=== PATIENT | female | born 1955 | race Hispanic/Latino ===

== ENCOUNTER 2024-12-14 11:12 | Emergency (ER) | payer OTHER ==
--- OUTSIDE RECORDS SUMMARY | 2024-12-14 11:18 | XMS REPORT | Continuity of Care Document ---
Author Name Unknown Address [address] [facility] [place] [address] [facility] Address [address] [facility] [address] [place] [address] Care Team Providers Care Dental Hygiene Professor Name Role Phone Kd Verde Primary Care Physician [phone] Kd Mirza Attending Clinician Unavailable BEVERLY PITTMAN Attending Clinician Unavailable BEVERLY PITTMAN Attending Clinician Unavailable Phil Robles Attending Clinician Unavailable Nic Roegrs Attending Clinician Unavailab SHRUTHI Juárez K.HGeorgia Attending Clinician UnavailShruthi Alaniz MD K.H. Attending Clinician [phone] CRYSTAL_Travis_Phil_ Attending Clinician Unavailjosefa laureano Doctor Unassigned, [place] Attending Clinician U jordanailLIDYA Mccollum Attending Clinician Unavailable Lidya Doan Attending Clinician [phone] Unknown, Attending Attending Clinician UnavailREMEDIOS White Attending Clinician Unavailable Remedios Park MD Attending Clinician [phone] Rita Lopez MA Attending Clinician UnavailKd Nur Admitting Clinician Unavailable Phil Robles Admitting Clinician Unavailable Nic Rogers Admitting Clinician UnavailKD Coburn Admitting Clinician Unavailable CRYSTAL_Marilyn_ Admitting Clinician Unavaila ble Payers Payer Name Policy Type Policy Number Effective Date Expirati on Date Source [place]IC[place]: [employer] [id number] 2020 00:00:00 [employer] [place] (MEDICARE SUPPLEMENT) [id number] 2022 00:00:00 [employer] [id number] Comm on [facility] LIFE INSURANCE [id number] 2020 00:00:00 AETNA CHOICE POS II [id number] 2018 00:00:00 2020 00:00:00 Problems Condition Name Condition Details Condition Category Status Onset Date Resolution Date Last Treatment Date Treating Clinician Comments Source Knee joint prosthesis present Knee Joint Prosthesis Present Problem Active 2023-08 2-19 00:00: 00 [facility] Postoperat dao pain Postoperat dao Pain Problem Active 9-05 00:00: 00 [facility] 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 Problem Active 7-23 00:00: 00 [facility] Foot-drop Foot-drop Problem Active 7-19 00:00: 00 [facility] Lumbar radiculopa thy Lumbar Radiculopa thy Problem Active 7-18 00:00: 00 [facility] Bursitis of right shoulder Bursitis of Right Shoulder Problem Active 12-23 00:00: 00 [facility] Pain of bilateral knee regions Pain of Bilateral Knee Regions Problem Active 12-23 00:00: 00 [facility] Primary gonarthros is, bilateral Primary Gonarthros is, Bilateral Problem Active 2024-0 5-07 00:00: 00 [facility] Rupture of tendon of biceps Rupture of Tendon of Biceps Problem Active 5-07 00:00: 00 [facility] Postmenopa usal osteoporos is Postmenopa usal osteoporos is Disease Active 2-15 00:00: [address] [facility] Osteopenia , unspecifie d location Osteopenia , unspecifie d location Disease Active 1-13 00:00: [address] [facility] [id number] Pain, joint, knee, right Problem [facility] [id number] Pain, joint, knee, left Problem [facility] [id number] Pain, joint, shoulder, right Problem [facility] [id number] Pain of right humerus Problem [facility] [id number] Injury of left knee, initial encounter Problem [facility] [id number] Primary osteoarthr itis of left knee Problem [facility] [id number] Other tear of medial meniscus of left knee as current injury, subsequent encounter Problem [facility] [id number] Primary osteoarthr itis of right knee Problem [facility] Allergies, Adverse Reactions, Alerts Allergy Name Allergy Type Status Severity Reaction(s) Onset Date Inactive Date Treating Clinician Comments Source No Known Drug Allergie s DA Active U 2023-08 0- 00:00: 00 [facility] lactose FA Active WI [facility] 2023-08 0-31 00:00: 00 [facility] lactose FA Active WI SEVERE CRAMPING 9- 00:00: 00 [facility] Lactose Allergy to substanc e Active 9- 00:00: 00 [facility] No Known Drug Allergie s DA Active U 8- 00:00: 00 [facility] lactose FA Active WI SE[facility]ERE CRAMPING 8- 00:00: 00 [facility] Hydrocod one Drug Intolera nce Active Nausea and/or Vomiting 08-31 00:00: 00 [facility] HYDROCOD ONE DRUG INGREDI Active Med N/V 08-31 00:00: 00 [facility] Hydrocod one Allergy to substanc e Active 08-31 00:00: 00 [facility] Milk Allergy to substanc e Active [facility] Social History Social Habit Start Date Stop Date Quantity Comments Source History of Tobacco Use [facility] Sex Assigned At [facility] History SDOH Alcohol Std Drinks [facility] History SDOH Alcohol Binge [facility] History SDOH Alcohol Comment [facility] Alcoholic beverage intake 2024-10-23 00:00:00 2024-10-23 00:00:00 Lifetime non-drinker (finding) [facility] Alcohol intake 2023-10-18 00:00:00 2023-10-18 00:00:00 Lifetime non-drinker (finding) [facility] Exposure to SARS-CoV-2 (event) 2022-10-09 00:00:00 2022-10-19 14:11:00 Not sure [facility] Tobacco use and exposure 2022-10-12 00:00:00 2022-10-12 00:00:00 Smokeless tobacco non-user [facility] History of Social function 2021-10-03 00:00:00 2021-10-03 00:00:00 [facility] History SDOH Alcohol Frequency 2020-08-31 00:00:00 2020-08-31 00:00:00 1 [facility] Smoking Status Start Date Stop Date Source Former Smoker [facility] Never smoked tobacco [facility] Medications Ordered Medication Name Filled Medication Name Start Date Stop Date Current Medication? Ordering Clinician Indication Dosage Frequency Signature (SIG) Comments Components Source doxycycline hyclate 100 mg capsule Take 1 capsule twice a day by oral route for 7 days. doxycycline hyclate 100 mg capsule Take 1 capsule twice a day by oral route for 7 days. 2023-08 2 00:00: 00 No doxycyclin e hyclate 100 mg capsule Take 1 capsule twice a day by oral route for 7 days. [facility] aspirin 81 mg tablet,mojgan yed release 1 tablet twice a day by oral route. aspirin 81 mg tablet,mojgan yed release 1 tablet twice a day by oral route. 2023-08 0 00:00: 00 No 1 BID aspirin 81 mg tablet,del ayed release 1 tablet twice a day by oral route. [facility] Kenalog (Triamcinol one) Kenalog (Triamcinol one) 2 00:00: 00 No [facility]mL [facility] Lidocaine Lidocaine 00:00: 00 No 5mL [facility] Kenalog (Triamcinol one) Kenalog (Triamcinol one) 00:00: 00 No 2mL [facility] Lidocaine Lidocaine 00:00: 00 No 5mL [facility] Kenalog (Triamcinol one) Kenalog (Triamcinol one) 00:00: 00 No 2mL [facility] Lidocaine Lidocaine 00:00: 00 No 5mL [facility] Kenalog (Triamcinol one) Kenalog (Triamcinol one) 00:00: 00 No 2mL [facility] Lidocaine Lidocaine 00:00: 00 No 5mL [facility] Kenalog (Triamcinol one) Kenalog (Triamcinol one) 01-23 00:00: 00 No 2mL [facility] Lidocaine Lidocaine 01-23 00:00: 00 No 5mL [facility] Kenalog (Triamcinol one) Kenalog (Triamcinol one) 01-23 00:00: 00 No 2mL [facility] Lidocaine Lidocaine 0 01-23 00:00: 00 No 5mL [facility] Kenalog (Triamcinol one) Kenalog (Triamcinol one) 0 - 00:00: 00 No 2mL [facility] Lidocaine Lidocaine 0 01-23 00:00: 00 No 5mL [facility] Kenalog (Triamcinol one) Kenalog (Triamcinol one) 0 - 00:00: 00 No 2mL [facility] Lidocaine Lidocaine 0 01-23 00:00: 00 No 5mL [facility] Kenalog (Triamcinol one) Kenalog (Triamcinol one) 0 01-23 00:00: 00 No 2mL [facility] Lidocaine Lidocaine 0 01-23 00:00: 00 No 5mL [facility] Kenalog (Triamcinol one) Kenalog (Triamcinol one) 0 01-23 00:00: 00 No 2mL [facility] Lidocaine Lidocaine 0 01-23 00:00: 00 No 5mL [facility] Kenalog (Triamcinol one) Kenalog (Triamcinol one) 0 01-23 00:00: 00 No 2mL [facility] Lidocaine Lidocaine 0 01-23 00:00: 00 No 5mL [facility] Lidocaine Lidocaine 0 17 00:00: 00 No 5mL [facility] Kenalog (Triamcinol one) Kenalog (Triamcinol one) 0 -17 00:00: 00 No 2mL [facility] Lidocaine Lidocaine 0 -17 00:00: 00 No 5mL [facility] Kenalog (Triamcinol one) Kenalog (Triamcinol one) 0 -17 00:00: 00 No 2mL [facility] Lidocaine Lidocaine 0 -17 00:00: 00 No 5mL [facility] Kenalog (Triamcinol one) Kenalog (Triamcinol one) 0 5-17 00:00: 00 No 2mL [facility] Lidocaine Lidocaine 2022-0 5-17 00:00: 00 No 5mL [facility] Kenalog (Triamcinol one) Kenalog (Triamcinol one) 0 5-17 00:00: 00 No 2mL [facility] Lidocaine Lidocaine 2022-0 5-17 00:00: 00 No 5mL [facility] Kenalog (Triamcinol one) Kenalog (Triamcinol one) 2022-0 5-17 00:00: 00 No 2mL [facility] Lidocaine Lidocaine 0 -17 00:00: 00 No 5mL [facility] Kenalog (Triamcinol one) Kenalog (Triamcinol one) 2022-0 -17 00:00: 00 No 2mL [facility] Lidocaine Lidocaine 2022-0 -17 00:00: 00 No 5mL [facility] Kenalog (Triamcinol one) Kenalog (Triamcinol one) 2022-0 -17 00:00: 00 No 2mL [facility] Meloxicam 7.5 MG Meloxicam 7.5 MG 2022-0 27 00:00: 00 No 1{table t} QD Meloxicam 7.5 MG Meloxicam 7.5 MG Meloxicam 7.5 MG 2022-0 27 00:00: 00 No 1{table t} QD Meloxicam 7.5 MG Meloxicam 7.5 MG Meloxicam 7.5 MG 2022-0 27 00:00: 00 No 1{table t} QD Meloxicam 7.5 MG Meloxicam 7.5 MG Meloxicam 7.5 MG 2022-0 12-13 00:00: 00 No 1{table t} QD Meloxicam 7.5 MG Meloxicam 7.5 MG Meloxicam 7.5 MG 12-13 00:00: 00 No 1{table t} QD Meloxicam 7.5 MG Meloxicam 7.5 MG Meloxicam 7.5 MG 12-13 00:00: 00 No 1{table t} QD Meloxicam 7.5 MG nitrofurant oin 100 mg capsule 10-19 00:00: 00 10-27 05:59 :00 No [id number] 100mg Take 1 capsule by mouth in the morning and 1 capsule in the evening. Do all this for [address] [facility] fluconazole (DIFLUCAN) 150 mg tablet 10-19 00:00: 00 10-22 05:59 :00 No [id number] 150mg Take 1 tablet by mouth in the morning for [address] [facility] FERROUS GLUCONATE ORAL 224 09:51: 35 Yes Take by mouth. [facility] BABY ASPIRIN ORAL 215 09:41: 22 Yes Take by mouth. [facility] alendronate (FOSAMAX) 70 mg tablet 11-15 00:00: 00 Yes [id number] 70mg Take 1 tablet by mouth weekly. [facility] calcium carbonate (CALCIUM 500) 500 mg calcium (1,250 mg) chewable tablet 11-08 00:00: 00 Yes [id number] 1{tbl} Take 1 tablet by mouth daily. [facility] folic acid/multiv it-min/lute in (CENTRUM SILVER ORAL) 08-31 11:06: 27 Yes Take by mouth. [facility] cyanocobala min 1,000 mcg/mL injection 08-31 11:06: 27 Yes by Intramuscu lar route once now. [facility] Bupivicaine [place] Bupivicaine [place] 1-07 00:00: 00 No 2.5mg [facility] Kenalog (Triamcinol one) Kenalog (Triamcinol one) 08-25 00:00: 00 No 40mg [facility] Bupivicaine [place] Bupivicaine [place] 08-25 00:00: 00 No 2.5mg [facility] Kenalog (Triamcinol one) Kenalog (Triamcinol one) 08-25 00:00: 00 No 40mg [facility] Bupivicaine [place] Bupivicaine [place] 08-25 00:00: 00 No 2.5mg [facility] Kenalog (Triamcinol one) Kenalog (Triamcinol one) 08-25 00:00: 00 No 40mg [facility] Bupivicaine [place] Bupivicaine [place] 08-25 00:00: 00 No 2.5mg [facility] Kenalog (Triamcinol one) Kenalog (Triamcinol one) 08-25 00:00: 00 No 40mg [facility] Bupivicaine [place] Bupivicaine [place] 08-25 00:00: 00 No 2.5mg [facility] Kenalog (Triamcinol one) Kenalog (Triamcinol one) 08-25 00:00: 00 No 40mg [facility] Bupivicaine [place] Bupivicaine [place] 08-25 00:00: 00 No 2.5mg [facility] Kenalog (Triamcinol one) Kenalog (Triamcinol one) 08-25 00:00: 00 No 40mg [facility] Bupivicaine [place] Bupivicaine [place] 08-25 00:00: 00 No 2.5mg [facility] Kenalog (Triamcinol one) Kenalog (Triamcinol one) 08-25 00:00: 00 No 40mg [facility] metFORMIN 500 mg tablet 2019-08 00:00: 00 Yes 500mg Take 1 tablet by mouth in the morning and 1 tablet in the evening. [facility] VITAMIN D2 1,250 mcg (50,000 unit) capsule 2019-08 00:00: 00 Yes TAKE 1 CAPSULE BY MOUTH ONCE A WEEKLY FOR ONE MONTH THEN TAKE [address] ON[address] A MONTH [facility] atorvastati n 20 mg tablet 2019-08 00:00: 00 Yes 20mg Take 1 tablet by mouth in the morning. [facility] ferrous gluconate 324 mg (38 mg iron) tablet TAKE 1 TABLET BY MOUTH DAILY WITH WATER OR JUICE BETWEEN MEALS ferrous gluconate 324 mg (38 mg iron) tablet TAKE 1 TABLET BY MOUTH DAILY WITH WATER OR JUICE BETWEEN MEALS No ferrous gluconate 324 mg (38 mg iron) tablet TAKE 1 TABLET BY MOUTH DAILY WITH WATER OR JUICE BETWEEN MEALS [facility] metformin 1,000 mg tablet TAKE 1 TABLET BY MOUTH TWICE DAILY metformin 1,000 mg tablet TAKE 1 TABLET BY MOUTH TWICE DAILY No metformin 1,000 mg tablet TAKE 1 TABLET BY MOUTH TWICE DAILY [facility] calcium 500 mg (as carbonate)- vitamin D3 5 mcg (200 unit) tablet calcium 500 mg (as carbonate)- vitamin D3 5 mcg (200 unit) tablet No calcium 500 mg (as carbonate) -vitamin D3 5 mcg (200 unit) tablet [facility] cholecalcif sesar (vitamin D3) 1,250 mcg (50,000 unit) capsule cholecalcif sesar (vitamin D3) 1,250 mcg (50,000 unit) capsule No cholecalci ferol (vitamin D3) 1,250 mcg (50,000 unit) capsule [facility] ferrous sulfate 325 mg (65 mg iron) tablet ferrous sulfate 325 mg (65 mg iron) tablet No ferrous sulfate 325 mg (65 mg iron) tablet [facility] HYDROcodone -Acetaminop hen 7.5-325 MG HYDROcodone -Acetaminop hen 7.5-325 MG No HYDROcodon e-Acetamin ophen 7.5-325 MG Centrum Silver Centrum Silver No Centrum Silver Multivitami n Multivitami n No Multivitam in HYDROcodone -Acetaminop hen 7.5-325 MG HYDROcodone -Acetaminop hen 7.5-325 MG No HYDROcodon e-Acetamin ophen 7.5-325 MG Amoxicillin 500 MG Amoxicillin 500 MG No Amoxicilli n 500 MG Multivitami n Multivitami n No Multivitam in HYDROcodone -Acetaminop hen 7.5-325 MG HYDROcodone -Acetaminop hen 7.5-325 MG No HYDROcodon e-Acetamin ophen 7.5-325 MG Amoxicillin 500 MG Amoxicillin 500 MG No Amoxicilli n 500 MG Dodex Dodex No Dodex Multivitami n Multivitami n No Multivitam in HYDROcodone -Acetaminop hen 7.5-325 MG HYDROcodone -Acetaminop hen 7.5-325 MG No HYDROcodon e-Acetamin ophen 7.5-325 MG Amoxicillin 500 MG Amoxicillin 500 MG No Amoxicilli n 500 MG Amoxicillin 500 MG Amoxicillin 500 MG No Amoxicilli n 500 MG Vitamin D 50 MCG (1999) Vitamin D 50 MCG (1999) No 1{table t} QD Vitamin D 50 MCG (1999) Calcium + D3 Calcium + D3 No Calcium + D3 Ferrous Gluconate 324 (38 Fe) MG Ferrous Gluconate 324 (38 Fe) MG No 1{table t} Ferrous Gluconate 324 (38 Fe) MG Multivitami n - Multivitami n - No 1{table t} QD Multivitam in - traZODone HCl 50 MG traZODone HCl 50 MG No 1{table t_at_be dtime_a s_neede d} QD traZODone HCl 50 MG Atorvastati n Calcium 20 MG Atorvastati n Calcium 20 MG No 1{table t} QD Atorvastat in Calcium 20 MG Dodex 1000 MCG/ML Dodex 1000 MCG/ML No 1{ml} Dodex 1000 MCG/ML metFORMIN HCl 1000 MG metFORMIN HCl 1000 MG No 1{table t_with_ a_meal} QD metFORMIN HCl 1000 MG HYDROcodone -Acetaminop hen 7.5-325 MG HYDROcodone -Acetaminop hen 7.5-325 MG No HYDROcodon e-Acetamin ophen 7.5-325 MG Dodex Dodex No Dodex Amoxicillin 500 MG Amoxicillin 500 MG No Amoxicilli n 500 MG HYDROcodone -Acetaminop hen 7.5-325 MG HYDROcodone -Acetaminop hen 7.5-325 MG No HYDROcodon e-Acetamin ophen 7.5-325 MG Amoxicillin 500 MG Amoxicillin 500 MG No Amoxicilli n 500 MG Immunizations Ordered Immunization Name Filled Immunization Name Date Status Comments Source Influenza Virus Vaccine,quad Im,preserve Free 65+ (FLUAD) 2023-06-09 00:00:00 Completed [facility] SARS-COV-2 COVID-19 PFIZER VACCINE 2023-06-09 00:00:00 Completed SARS-COV-2 COVID-19 MODERNA VACCINE 2021-06-23 00:00:00 Completed [facility] SARS-COV-2 COVID-19 MODERNA VACCINE 2021-06-23 00:00:00 Completed [facility] SARS-COV-2 COVID-19 MODERNA VACCINE 2021-06-23 00:00:00 Completed [facility] SARS-COV-2 COVID-19 MODERNA VACCINE 2021-06-23 00:00:00 Completed [facility] SARS-COV-2 COVID-19 MODERNA 12+ YRS VACCINE 2021-06-23 00:00:00 Completed [facility] SARS-COV-2 COVID-19 MODERNA 12+ YRS VACCINE 2021-06-23 00:00:00 Completed [facility] SARS-COV-2 COVID-19 MODERNA 12+ YRS VACCINE 2021-06-23 00:00:00 Completed [facility] SARS-COV-2 COVID-19 MODERNA 12+ YRS VACCINE 2021-06-23 00:00:00 Completed [facility] SARS-COV-2 COVID-19 MODERNA 12+ YRS VACCINE 2021-06-23 00:00:00 Completed Influenza High Dose 2021-06-08 00:00:00 Completed [facility] Pneumococcal Polysaccharide, PPSV23 (PNEUMOVAX) 2021-06-08 00:00:00 Completed [facility] Influenza High Dose 2021-06-08 00:00:00 Completed [facility] Pneumococcal Polysaccharide, PPSV23 (PNEUMOVAX) 2021-06-08 00:00:00 Completed [facility] Influenza High Dose 2021-06-08 00:00:00 Completed [facility] Pneumococcal Polysaccharide, PPSV23 (PNEUMOVAX) 2021-06-08 00:00:00 Completed [facility] Influenza High Dose 2021-06-08 00:00:00 Completed [facility] Pneumococcal Polysaccharide, PPSV23 (PNEUMOVAX) 2021-06-08 00:00:00 Completed [facility] Influenza High Dose 2021-06-08 00:00:00 Completed [facility] Pneumococcal Polysaccharide, PPSV23 (PNEUMOVAX) 2021-06-08 00:00:00 Completed [facility] Influenza High Dose 2021-06-08 00:00:00 Completed [facility] Pneumococcal Polysaccharide, PPSV23 (PNEUMOVAX) 2021-06-08 00:00:00 Completed [facility] Influenza High Dose 2021-06-08 00:00:00 Completed [facility] Pneumococcal Polysaccharide, PPSV23 (PNEUMOVAX) 2021-06-08 00:00:00 Completed [facility] Influenza High Dose 2021-06-08 00:00:00 Completed [facility] Pneumococcal Polysaccharide, PPSV23 (PNEUMOVAX) 2021-06-08 00:00:00 Completed [facility] Influenza, High-Dose, Trivalent, PF (FLUZONE) 2021-06-08 00:00:00 Completed [facility] Pneumococcal Polysaccharide, PPSV23 (PNEUMOVAX) 2021-06-08 00:00:00 Completed SARS-COV-2 COVID-19 MODERNA VACCINE 2020-11-08 00:00:00 Completed [facility] SARS-COV-2 COVID-19 MODERNA VACCINE 2020-11-08 00:00:00 Completed [facility] SARS-COV-2 COVID-19 MODERNA VACCINE 2020-11-08 00:00:00 Completed [facility] SARS-COV-2 COVID-19 MODERNA VACCINE 2020-11-08 00:00:00 Completed [facility] SARS-COV-2 COVID-19 MODERNA 12+ YRS VACCINE 2020-11-08 00:00:00 Completed [facility] SARS-COV-2 COVID-19 MODERNA 12+ YRS VACCINE 2020-11-08 00:00:00 Completed [facility] SARS-COV-2 COVID-19 MODERNA 12+ YRS VACCINE 2020-11-08 00:00:00 Completed [facility] SARS-COV-2 COVID-19 MODERNA 12+ YRS VACCINE 2020-11-08 00:00:00 Completed [facility] SARS-COV-2 COVID-19 MODERNA 12+ YRS VACCINE 2020-11-08 00:00:00 Completed SARS-COV-2 COVID-19 MODERNA VACCINE 2020-10-13 00:00:00 Completed [facility] SARS-COV-2 COVID-19 MODERNA VACCINE 2020-10-13 00:00:00 Completed [facility] SARS-COV-2 COVID-19 MODERNA VACCINE 2020-10-13 00:00:00 Completed [facility] SARS-COV-2 COVID-19 MODERNA VACCINE 2020-10-13 00:00:00 Completed [facility] SARS-COV-2 COVID-19 MODERNA 12+ YRS VACCINE 2020-10-13 00:00:00 Completed [facility] SARS-COV-2 COVID-19 MODERNA 12+ YRS VACCINE 2020-10-13 00:00:00 Completed [facility] SARS-COV-2 COVID-19 MODERNA 12+ YRS VACCINE 2020-10-13 00:00:00 Completed [facility] SARS-COV-2 COVID-19 MODERNA 12+ YRS VACCINE 2020-10-13 00:00:00 Completed [facility] SARS-COV-2 COVID-19 MODERNA 12+ YRS VACCINE 2020-10-13 00:00:00 Completed [facility] Influenza Virus Vaccine Recomb Quad IM, Preserv and ABX Free 18-64 YRS 2020-05-31 00:00:00 Completed [facility] Zoster Vaccine Recombinant 2020-05-31 00:00:00 Completed [facility] Influenza Virus Vaccine Recomb Quad IM, Preserv and ABX Free 18-64 YRS 2020-05-31 00:00:00 Completed [facility] Zoster Vaccine Recombinant 2020-05-31 00:00:00 Completed [facility] Influenza Virus Vaccine Recomb Quad IM, Preserv and ABX Free 18-64 YRS 2020-05-31 00:00:00 Completed [facility] Zoster Vaccine Recombinant 2020-05-31 00:00:00 Completed [facility] Influenza Virus Vaccine Recomb Quad IM, Preserv and ABX Free 18-64 YRS 2020-05-31 00:00:00 Completed [facility] Zoster Vaccine Recombinant 2020-05-31 00:00:00 Completed [facility] Influenza Virus Vaccine Recomb Quad IM, Preserv and ABX Free 18-64 YRS 2020-05-31 00:00:00 Completed [facility] Zoster Vaccine Recombinant 2020-05-31 00:00:00 Completed [facility] Influenza Virus Vaccine Recomb Quad IM, Preserv and ABX Free 18-64 YRS 2020-05-31 00:00:00 Completed [facility] Zoster Vaccine Recombinant 2020-05-31 00:00:00 Completed [facility] Influenza Virus Vaccine Recomb Quad IM, Preserv and ABX Free 18-64 YRS 2020-05-31 00:00:00 Completed [facility] Zoster Vaccine Recombinant 2020-05-31 00:00:00 Completed [facility] Influenza Virus Vaccine Recomb Quad IM, Preserv and ABX Free 18-64 YRS 2020-05-31 00:00:00 Completed [facility] Zoster Vaccine Recombinant 2020-05-31 00:00:00 Completed [facility] Influenza Virus Vaccine Recomb Quad IM, Preserv and ABX Free 18-64 YRS 2020-05-31 00:00:00 Completed Zoster Vaccine Recombinant 2020-05-31 00:00:00 Completed Influenza Virus Vaccine Recomb Quad IM, Preserv and ABX Free 18-64 YRS Unknown Completed [facility] Zoster Vaccine Recombinant Unknown Completed [facility] SARS-COV-2 COVID-19 MODERNA 12+ YRS VACCINE Unknown Completed [facility] Influenza High Dose Unknown Completed [facility] Pneumococcal Polysaccharide, PPSV23 (PNEUMOVAX) Unknown Completed [facility] Influenza Virus Vaccine Recomb Quad IM, Preserv and ABX Free 18-64 YRS Unknown Completed [facility] Zoster Vaccine Recombinant Unknown Completed [facility] Influenza High Dose Unknown Completed [facility] Pneumococcal Polysaccharide, PPSV23 (PNEUMOVAX) Unknown Completed [facility] Influenza Virus Vaccine,quad Im,preserve Free 65+ (FLUAD) Unknown Completed [facility] SARS-COV-2 COVID-19 PFIZER VACCINE Unknown Completed [facility] SARS-COV-2 COVID-19 MODERNA 12+ YRS VACCINE Unknown Completed [facility] Influenza Virus Vaccine Recomb Quad IM, Preserv and ABX Free 18-64 YRS Unknown Completed [facility] Zoster Vaccine Recombinant Unknown Completed [facility] SARS-COV-2 COVID-19 MODERNA 12+ YRS VACCINE Unknown Completed [facility] Influenza High Dose Unknown Completed [facility] Pneumococcal Polysaccharide, PPSV23 (PNEUMOVAX) Unknown Completed [facility] Influenza Virus Vaccine,quad Im,preserve Free 65+ (FLUAD) Unknown Completed [facility] SARS-COV-2 COVID-19 PFIZER VACCINE Unknown Completed [facility] Influenza Virus Vaccine Recomb Quad IM, Preserv and ABX Free 18-64 YRS Unknown Completed [facility] Zoster Vaccine Recombinant Unknown Completed [facility] SARS-COV-2 COVID-19 MODERNA 12+ YRS VACCINE Unknown Completed [facility] Influenza High Dose Unknown Completed [facility] Pneumococcal Polysaccharide, PPSV23 (PNEUMOVAX) Unknown Completed [facility] Influenza Virus Vaccine,quad Im,preserve Free 65+ (FLUAD) Unknown Completed [facility] SARS-COV-2 COVID-19 PFIZER VACCINE Unknown Completed [facility] Influenza Virus Vaccine Recomb Quad IM, Preserv and ABX Free 18-64 YRS Unknown Completed [facility] Zoster Vaccine Recombinant Unknown Completed [facility] SARS-COV-2 COVID-19 MODERNA 12+ YRS VACCINE Unknown Completed [facility] Influenza High Dose Unknown Completed [facility] Pneumococcal Polysaccharide, PPSV23 (PNEUMOVAX) Unknown Completed [facility] Influenza Virus Vaccine,quad Im,preserve Free 65+ (FLUAD) Unknown Completed [facility] SARS-COV-2 COVID-19 PFIZER VACCINE Unknown Completed [facility] Influenza Virus Vaccine Recomb Quad IM, Preserv and ABX Free 18-64 YRS Unknown Completed [facility] Zoster Vaccine Recombinant Unknown Completed [facility] SARS-COV-2 COVID-19 MODERNA 12+ YRS VACCINE Unknown Completed [facility] Influenza High Dose Unknown Completed [facility] Pneumococcal Polysaccharide, PPSV23 (PNEUMOVAX) Unknown Completed [facility] Influenza Virus Vaccine,quad Im,preserve Free 65+ (FLUAD) Unknown Completed [facility] SARS-COV-2 COVID-19 PFIZER VACCINE Unknown Completed [facility] Vital Signs Vital Name Observation Time Observation Value Comments S ource BMI (Body Mass Index) 2024-09-03 00:00:00 29.2 kg/m2 [facility] Height 2024-09-03 00:00:00 63 [in_i] [facility] Body Weight 2024-09-03 00:00:00 165 [lb_av] [facility] Height 2024-08-14 00:00:00 63 [in_i] [facility] Height 2024-08-06 00:00:00 63 [in_i] [facility] BMI (Body Mass Index) 2024-08-06 00:00:00 29.2 kg/m2 [facility] Body Weight 2024-08-06 00:00:00 165 [lb_av] [facility] BMI (Body Mass Index) 2024-07-01 00:00:00 29.2 kg/m2 [facility] Body Weight 2024-07-01 00:00:00 165 [lb_av] [facility] Height 2024-07-01 00:00:00 63 [in_i] [facility] Height 2024-06-05 00:00:00 63 [in_i] [facility] Body Weight 2024-06-05 00:00:00 165 [lb_av] [facility] BMI (Body Mass Index) 2024-06-05 00:00:00 29.2 kg/m2 [facility] BMI (Body Mass Index) 2024-06-01 00:00:00 29.2 kg/m2 [facility] Height 2024-06-01 00:00:00 63 [in_i] [facility] Body Weight 2024-06-01 00:00:00 165 [lb_av] [facility] BMI (Body Mass Index) 2024-05-01 00:00:00 29.2 kg/m2 [facility] Body Weight 2024-05-01 00:00:00 165 [lb_av] [facility] Height 2024-05-01 00:00:00 63 [in_i] [facility] Body Weight 2024-03-25 00:00:00 165 [lb_av] [facility] BMI (Body Mass Index) 2024-03-25 00:00:00 29.2 kg/m2 [facility] Height 2024-03-25 00:00:00 63 [in_i] [facility] Height 2024-03-19 00:00:00 63 [in_i] [facility] Body Weight 2024-03-19 00:00:00 165 [lb_av] [facility] BMI (Body Mass Index) 2024-03-19 00:00:00 29.2 kg/m2 [facility] Height 2024-03-10 00:00:00 63 [in_i] [facility] Body Weight 2024-03-10 00:00:00 165 [lb_av] [facility] BMI (Body Mass Index) 2024-03-10 00:00:00 29.2 kg/m2 [facility] Height 2024-03-06 00:00:00 63 [in_i] [facility] BMI (Body Mass Index) 2024-03-06 00:00:00 29.2 kg/m2 [facility] Body Weight 2024-03-06 00:00:00 165 [lb_av] [facility] Height 2024-03-05 00:00:00 63 [in_i] [facility] BMI (Body Mass Index) 2024-03-05 00:00:00 29.2 kg/m2 [facility] Body Weight 2024-03-05 00:00:00 165 [lb_av] [facility] BMI (Body Mass Index) 2023-12-24 00:00:00 29.2 kg/m2 [facility] Body Weight 2023-12-24 00:00:00 165 [lb_av] [facility] Height 2023-12-24 00:00:00 63 [in_i] Oswaldo [facility] height 2023-11-07 09:45:00 63 [in_i] Commo n [facility] weight 2023-11-07 09:45:00 175.4 [lb_av] Co mmon [facility] temperature 2023-11-07 09:45:00 97.9 [degF] Com mon [facility] bmi 2023-11-07 09:45:00 31.07 kg/m2 Comm on [facility] blood pressure systolic 2023-11-07 09:45:00 124 mm[Hg] Common [facility] blood pressure diastolic 2023-11-07 09:45:00 83 mm[Hg] [facility] Systolic blood pressure 2023-10-18 15:36:00 125 mm[Hg] [facility] Diastolic blood pressure 2023-10-18 15:36:00 77 mm[Hg] [facility] Heart rate 2023-10-18 15:36:00 68 /min [facility] Body temperature 2023-10-18 15:36:00 36.72 H[facility] Respiratory rate 2023-10-18 15:36:00 16 /min [facility] Body height 2023-10-18 15:36:00 160 cm [facility] Body weight 2023-10-18 15:36:00 77.111 kg [facility] BMI 2023-10-18 15:36:00 30.11 kg/m2 [facility] height 2023-10-17 14:00:00 63 [in_i] Commo n [facility] weight 2023-10-17 14:00:00 176 [lb_av] Comm on [facility] temperature 2023-10-17 14:00:00 97.7 [degF] Com mon [facility] bmi 2023-10-17 14:00:00 31.17 kg/m2 Comm on [facility] blood pressure systolic 2023-10-17 14:00:00 126 mm[Hg] Common [facility] blood pressure diastolic 2023-10-17 14:00:00 74 mm[Hg] [facility] height 2023-01-23 09:30:00 63 [in_i] Commo n [facility] weight 2023-01-23 09:30:00 176 [lb_av] Comm on [facility] temperature 2023-01-23 09:30:00 97.4 [degF] Com [facility] bmi 2023-01-23 09:30:00 31.17 kg/m2 Comm on [facility] blood pressure systolic 2023-01-23 09:30:00 130 mm[Hg] [facility] blood pressure diastolic 2023-01-23 09:30:00 70 mm[Hg] [facility] height 2023-01-02 10:30:00 63 [in_i] Commo n [facility] weight 2023-01-02 10:30:00 175 [lb_av] Comm on [facility] temperature 2023-01-02 10:30:00 98.1 [degF] Com [facility] bmi 2023-01-02 10:30:00 31 kg/m2 Commo n [facility] blood pressure systolic 2023-01-02 10:30:00 126 mm[Hg] Common [facility] blood pressure diastolic 2023-01-02 10:30:00 80 mm[Hg] Common [facility] height 2022-12-13 14:00:00 63 [in_i] Commo n [facility] weight 2022-12-13 14:00:00 175 [lb_av] Comm on [facility] temperature 2022-12-13 14:00:00 97.6 [degF] Com [facility] bmi 2022-12-13 14:00:00 31 kg/m2 Commo n [facility] blood pressure systolic 2022-12-13 14:00:00 130 mm[Hg] [facility] blood pressure diastolic 2022-12-13 14:00:00 71 mm[Hg] Common [facility] Systolic blood pressure 2022-10-19 21:03:00 115 mm[Hg] [facility] o [facility] Diastolic blood pressure 2022-10-19 21:03:00 69 mm[Hg] [facility] Heart rate 2022-10-19 21:03:00 84 /min Unive [facility] Body temperature 2022-10-19 21:03:00 36.61 Hilda [facility] Respiratory rate 2022-10-19 21:03:00 17 /min [facility] Body height 2022-10-19 21:03:00 160 cm Univ [facility] Body weight 2022-10-19 21:03:00 77.202 kg [facility] BMI 2022-10-19 21:03:00 30.15 kg/m2 [facility] Oxygen saturation in Arterial blood by Pulse oximetry 2022-10-19 21:03:00 99 /min [facility] Systolic blood pressure 2022-10-12 15:48:00 117 mm[Hg] [facility] Diastolic blood pressure 2022-10-12 15:48:00 77 mm[Hg] [facility] Heart rate 2022-10-12 15:48:00 71 /min Unive [facility] Body temperature 2022-10-12 15:48:00 36.67 Hilda [facility] Respiratory rate 2022-10-12 15:48:00 17 /min [facility] Body height 2022-10-12 15:48:00 157.5 cm [facility] Body weight 2022-10-12 15:48:00 76.159 kg [facility] BMI 2022-10-12 15:48:00 30.71 kg/m2 Univ [facility] Systolic blood pressure 2021-10-03 15:28:00 130 mm[Hg] University [facility] Diastolic blood pressure 2021-10-03 15:28:00 79 mm[Hg] A[facility] o [facility] Heart rate 2021-10-03 15:28:00 80 /min [facility] Body temperature 2021-10-03 15:28:00 36.67 Hilda [facility] Respiratory rate 2021-10-03 15:28:00 18 /min [facility] Body height 2021-10-03 15:28:00 160 cm [facility] Body weight 2021-10-03 15:28:00 77.111 kg [facility] BMI 2021-10-03 15:28:00 30.11 kg/m2 [facility] Procedures Procedure Date / Time Performed Performing Clinician Source Orthopaedic Surgery - Other (Surg) 2024-06-18 00:00:00 [facility] DUPLEX VENOUS LEGS BILATERAL - BY VASCULAR LAB 2024-04-09 18:08:24 Kd Mirza [facility] MRI, knee, w/o contrast 2024-03-19 00:00:00 [place] [facility] Medicine MRI, lumbar spine, w/o contrast 2024-03-05 00:00:00 [place] [facility] Medicine EXTERNAL MAMMOGRAM 2024-01-09 00:00:00 Beverly Pittman U [facility] XR, knee, 1 or 2 view 2023-12-24 00:00:00 [facility] electrocardiogram, routine ECG, 12 leads min 2023-12-24 00:00:00 [facility] ASSIGNMENT OF BENEFITS 2023-10-18 15:17:47 Docto [place]assigned, [place] [facility] POCT URINALYSIS 2022-10-19 21:10:00 Lidya Witt [facility] ASSIGNMENT OF BENEFITS 2022-10-12 15:21:18 Docto r Unassigned, [place] [facility] POCT URINALYSIS W/O SPECIFIC GRAVITY 2022-10-12 00:00:00 Beverly Pittman [facility] EXTERNAL PROVIDER RECORDS 2022-01-19 05:01:00 Doctor Unassigned, [place] [facility] EXTERNAL PROVIDER RECORDS 2021-11-16 05:01:00 Doctor Unassigned, [place] [facility] Caesarean Section [facility] Encounters Start Date/Time End Date/Time Encounter Type Admission Type Attending [facility] Care Facility Care Department Encounter ID Source 2022-12-13 15:36:00 Outpatient Kd Mirza [facility] [id number] [facility] 2022-12-10 08:51:01 Outpatient Kd Mirza [facility] [id number] [facility] 2021-09-13 12:47:56 Outpatient [facility] [id number] [facility] 2021-09-13 12:18:48 Outpatient [facility] [id number] [facility] 2024-11-18 00:00:00 2024-11-18 17:48:02 Letter (Out) [facility] ([facility] [id number] [id number] [id number] [facility] 2024-10-23 09:30:00 2024-10-23 10:04:29 Outpatient BEVERLY CODY VIEN [facility] [id number] [facility] 2024-09-03 00:00:00 2024-09-03 00:00:00 Phil Robles MD: [address] [place] [address] , Ph. [phone] [facility] [place] [facility] [place] [id number] [facility] 2024-08-14 00:00:00 2024-08-14 00:00:00 Reza Ortgea MD: [address] [place] [address] , Ph. [phone] [facility] [place] [facility] [place] [facility] [id number] [facility] 2024-08-06 00:00:00 2024-08-06 00:00:00 Phil Robles MD: [address] [place] [address] , Ph. [phone] [facility] [place] [facility] [place] [facility] [place] [id number] [facility] 2024-07-24 00:00:00 2024-07-24 00:00:00 Lico Arroyo, FORGE HAND: [address] [place] [address] , Ph. [phone] [facility] [place] [facility] [place] [facility] [place] [id number] [facility] 2024-07-01 00:00:00 2024-07-01 00:00:00 Phil Robles MD: [address] [place] [address] , Ph. [phone] [place] [facility] [place] [facility] [place] [id number] [facility] 2024-06-19 00:00:00 2024-06-19 00:00:00 Phil Robles MD: [address] [place] [address] , Ph. [phone] [place] [facility] [place] [facility] [place] [id number] [facility] 2024-06-08 13:57:00 2024-06-08 13:57:00 Outpatient Phil Robles [facility] [id number] [facility] 2024-06-05 00:00:00 2024-06-05 00:00:00 Phil Robles MD: [address] [place] [address] , Ph. [phone] [place] [facility] [place] [facility] [place] [id number] [facility] 2024-06-01 00:00:00 2024-06-01 00:00:00 Nic Rogers MD: [address] [place] [address] , Ph. [phone] [facility] [place] [facility] [place] [facility] [id number] [facility] 2024-05-01 00:00:00 2024-05-01 00:00:00 Nic Rogers MD: [address] [place] [address] , Ph. [phone] [facility] [place] [facility] [place] [facility] [id number] [facility] 2024-04-23 08:51:00 2024-04-23 08:51:00 Outpatient Nic Bonds HCAT[facility] DAYS [id number] [facility] 2024-04-23 00:00:00 2024-04-23 00:00:00 Nic Rogers MD: [address] [place] [address] , Ph. [phone] [facility] [place] [facility] [place] [facility] [id number] [facility] 2024-04-09 12:35:51 2024-04-09 23:59:00 Outpatient SHRUTHI YEBOAH [facility] [id number] [facility] 2024-04-09 12:35:51 2024-04-09 23:59:00 Hospital Encounter Shruthi Rankin [facility] [id number] 350.1.13.10 4.2.7.2.[id number] [facility] 2024-03-25 07:58:00 2024-03-25 07:58:00 Outpatient CAROLYN Jacksone Phil HCAT[facility] RADI [id number] [facility] 2024-03-25 00:00:00 2024-03-25 00:00:00 Nic Rogers MD: [address] [address] , Ph. [phone] [place] [facility] [place] [facility] [id number] [facility] 2024-03-19 00:00:00 2024-03-19 00:00:00 Phil Robles MD: [address] [place] [address] , Ph. [phone] [place] [facility] [place] [facility] [place] [id number] [facility] 2024-03-10 00:00:00 2024-03-10 00:00:00 Reza Ortega MD: [address] [place] [address] , Ph. [phone] [place] [facility] [place] [facility] [id number] [facility] 2024-03-06 00:00:00 2024-03-06 00:00:00 Phil Robles MD: [address] [place] [address] , Ph. [phone] [place] [facility] [place] [facility] [place] [id number] [facility] 2024-03-05 00:00:00 2024-03-05 00:00:00 Phil Robles MD: [address] [place] [address] , Ph. [phone] [place] [facility] [place] [facility] [place] [id number] [facility] 2024-01-27 00:00:00 2024-01-28 16:05:44 Abstract Beverly Pittman [facility] [id number] 350.1.13.10 4.2.7.2.[id number] [facility] 2023-12-24 00:00:00 2023-12-24 00:00:00 Phil Robles MD: [address] [place] [address] , Ph. [phone] [facility] [place] [facility] [place] [facility] [place] [id number] [facility] 2023-12-02 00:00:00 2023-12-02 00:00:00 Outpatient F[facility]_[place] [id number] [facility] 2023-11-30 00:00:00 2023-11-30 00:00:00 Outpatient FOG_Burke_R yosef_ [place] [id number] [facility] 2023-11-28 00:00:00 2023-11-28 00:00:00 Outpatient [facility] [id number] [facility] 2023-11-18 00:00:00 2023-11-18 00:00:00 Letter (Out) [facility] 1.840.114 350.1.13.10 4.2.7.2.[id number] [facility] 2023-11-07 00:00:00 2023-11-07 00:00:00 (F/U) Follow Up Visit [facility] [id number] [facility] 2023-10-30 00:00:00 2023-10-30 00:00:00 (TEL) [facility] [id number] [facility] 2023-10-18 09:30:00 2023-10-18 09:50:15 Outpatient R BEVERLY PITTMAN [facility] [id number] [facility] 2023-10-18 09:30:00 2023-10-18 09:50:15 Office Visit Beverly Pittman [facility] 1.840.114 350.1.13.10 4.2.7.2.[id number] [facility] 2023-10-18 00:00:00 2023-10-18 00:00:00 Orders Only Doctor Unassigned, [place] [facility] 1.840.114 350.1.13.10 4.2.7.2.[id number] [facility] 2023-10-18 00:00:00 2023-10-18 00:00:00 Telephone Beverly Pittman [facility] 1.840.114 350.1.13.10 4.2.7.2.[id number] [facility] 2023-10-18 00:00:00 2023-10-18 00:00:00 (TEL) [facility] ST[facility] [id number] [facility] 2023-10-17 00:00:00 2023-10-17 00:00:00 (F/U) Follow Up Visit [facility] ST[facility] [id number] [facility] 2023-01-23 00:00:00 2023-01-23 00:00:00 OFFICE VISIT ESTAB PT LEVEL 3 [facility] STLMLC [id number] [facility] 2023-01-02 00:00:00 2023-01-02 00:00:00 OFFICE VISIT ESTAB PT LEVEL 3 [facility] ST[facility] [id number] [facility] 2022-12-13 00:00:00 2022-12-13 00:00:00 OFFICE VISIT ESTAB PT LEVEL 3 [facility] STLMLC [id number] [facility] 2022-10-19 14:00:00 2022-10-19 15:35:39 Outpatient R LIDYA WITT [facility] [id number] [facility] 2022-10-19 14:00:00 2022-10-19 15:35:39 Urgent Care Lidya Witt Unknown, Attending [facility] KEVIN PAINTER[facility] 1..840.114 350.1.13.10 4.2.7.2.[id number] [facility] 2022-10-19 00:00:00 2022-10-19 00:00:00 Telephone Beverly Pittman Rafael [facility] 1.0.114 350.1.13.10 4.2.7.2.[id number] [facility] 2022-10-12 09:30:00 2022-10-12 10:07:31 Outpatient R ZAIN BEVERLY [facility] [id number] [facility] 2022-10-12 09:30:00 2022-10-12 10:07:31 Office Visit Beverly Pittman Rafael [facility] 1.0.114 350.1.13.10 4.2.7.2.[id number] [facility] 2022-10-12 00:00:00 2022-10-12 00:00:00 Orders Only Doctor Unassigned, [place] [facility] 1.840.114 350.1.13.10 4.2.7.2.[id number] [facility] 2022-10-08 09:00:00 2022-10-08 09:00:00 Outpatient R REMEDIOS PARK [facility] [id number] [facility] 2022-01-19 00:00:00 2022-01-19 00:00:00 Orders Only Doctor Unassigned, [place] [facility] 1.840.114 350.1.13.10 4.2.7.2.[id number] [facility] 2021-11-23 00:00:00 2021-11-23 00:00:00 Telephone Xavier Remedios [facility] 1.840.114 350.1.13.10 4.2.7.2.[id number] [facility] 2021-11-16 00:00:00 2021-11-16 00:00:00 Orders Only Doctor Unassigned, [place] [facility] 1.2840.114 350.1.13.10 4.2.7.2.[id number] [facility] 2021-10-03 15:00:00 2021-10-03 15:00:00 Outpatient R ROGERS PARKN [facility] [id number] [facility] 2021-10-03 09:30:00 2021-10-03 10:12:01 Outpatient R ROGERS PARKN [facility] [id number] [facility] 2021-10-03 09:30:00 2021-10-03 10:12:01 Office Visit [place] [facility] 1.840.114 350.1.13.10 4.2.7.2.[id number] [facility] 2021-10-03 00:00:00 2021-10-03 00:00:00 Orders Only Doctor Unassigned, [place] [facility] 1.2840.114 350.1.13.10 4.2.7.2.[id number] [facility] 2021-09-26 00:00:00 2021-09-26 00:00:00 Pre Visit Outreach Rita Lopez 1.2840.114 350.1.13.10 4.2.7.2.[id number] [facility] 2021-09-05 09:00:00 2021-09-05 09:00:00 Outpatient R ROGERS PARKN [facility] [id number] [facility] 2021-08-30 00:00:00 2021-08-30 00:00:00 Orders Only Doctor Unassigned, [place] [facility] 1.2840.114 350.1.13.10 4.2.7.2.[id number] [facility] 2020-08-31 10:00:00 2020-08-31 10:00:00 Outpatient REMEDIOS ALDRICH [facility] [id number] Maria Guadalupe [facility] Results Test Description Test Time Test Comments Results Result Co mments Source BASIC METABOLIC [id number] 06:37:00* Test Item Value Reference Range Interpretation Comme nts SODIUM (test code = NA) 141 mmol/L 136-145 N POTASSIUM (test code = K) 4.9 mmol/L 3.5-5.1 N CHLORIDE (test code = CL) 105.0 mmol/L 98-107 N CARBON DIOXIDE (test code = CO2) 28.2 mmol/L 21-32 N GLUCOSE (test code = GLU) 173 mg/dL 74-106 H BLOOD UREA NITROGEN (test code = BUN) 13 mg/dL 7-18 N GLOMERULAR FILTRATION RATE (test code = GFR) 84.0 >60 The Glomerular Filtration Rate is a calculated parameterbased on serum Creatinine, patient age and sex. GFR valuesless than 60 mL/min/1.73 square meters are indicative ofChronic Kidney Disease. Values less than 15 mL/min/1.73square meters indicate Kidney failure. The calculation forGFR is based on the CKD-EPI (2020) calculation. This formulais race indifferent and is the recommended formula for GFRby the National Kidney Foundation for Adults.The GFR will not calculate if the sex is unknown or if thepatient's age is <18 years. CREATININE (test code = CREAT) 0.77 mg/dL 0.55-1.02 N CALCIUM (test code = CA) 9.2 mg/dL 8.5-10.1 N HGB [id number] 05:55:00* Test Item Value Reference Range Interpretation Comme nts HEMOGLOBIN (test code = HGB) 9.6 g/dL 12-16 L HEMATOCRIT (test code = HCT) 30.1 % 37-47 L SPECIMEN COMMENT: POD #[id number] 05:17:00* Test Item Value Reference Range Interpretation Comme nts GLUBED (test code = GLUBED) 175 mg/dL 60-99 H The normal fasti ng blood glucose range for a non-diabeticadult is 60-99 mg/dL. Two hours after meals, normal blood glucose levels should beless than 140 mg/dL.Please note new normal range. [id number] 05:01:00* Test Item Value Reference Range Interpretation Comme nts glubed (test code = glubed) 175 mg/dL 60-99 H performing lab: (test code = performing lab:) [facility] 2024-06-19 04:00:00* Test Item Value Reference Range Interpretation Comme nts hemoglobin (test code = hemoglobin) 9.6 g/dL 12-16 L hematocrit (test code = hematocrit) 30.1 % 37-47 L performing lab: (test code = performing lab:) [facility] 20:27:00* Test Item Value Reference Range Interpretation Comme nts GLUBED (test code = GLUBED) 264 mg/dL 60-99 H The normal fasti ng blood glucose range for a non-diabeticadult is 60-99 mg/dL. Two hours after meals, normal blood glucose levels should beless than 140 mg/dL.Please note new normal range. [id number] 20:11:00* Test Item Value Reference Range Interpretation Comme nts glubed (test code = glubed) 264 mg/dL 60-99 H performing lab: (test code = performing lab:) [facility] 17:18:00* Test Item Value Reference Range Interpretation Comme nts GLUBED (test code = GLUBED) 298 mg/dL 60-99 H The normal fasti ng blood glucose range for a non-diabeticadult is 60-99 mg/dL. Two hours after meals, normal blood glucose levels should beless than 140 mg/dL.Please note new normal range. [id number] 16:57:00* Test Item Value Reference Range Interpretation Comme nts glubed (test code = glubed) 298 mg/dL 60-99 H performing lab: (test code = performing lab:) [facility] 07:09:00* Test Item Value Reference Range Interpretation Comme nts glubed (test code = glubed) 160 mg/dL 60-99 H performing lab: (test code = performing lab:) [facility] [id number] 14:13:00* Test Item Value Reference Range Interpretation Comme nts SODIUM (test code = NA) 142 mmol/L 136-145 N POTASSIUM (test code = K) 3.8 mmol/L 3.5-5.1 N CHLORIDE (test code = CL) 104.0 mmol/L 98-107 N CARBON DIOXIDE (test code = CO2) 30.3 mmol/L 21-32 N GLUCOSE (test code = GLU) 106 mg/dL 74-106 N BLOOD UREA NITROGEN (test code = BUN) 14 mg/dL 7-18 N GLOMERULAR FILTRATION RATE (test code = GFR) 96.6 >60 The Glomerular Filtration Rate is a calculated parameterbased on serum Creatinine, patient age and sex. GFR valuesless than 60 mL/min/1.73 square meters are indicative ofChronic Kidney Disease. Values less than 15 mL/min/1.73square meters indicate Kidney failure. The calculation forGFR is based on the CKD-EPI (202) calculation. This formulais race indifferent and is the recommended formula for GFRby the National Kidney Foundation for Adults.The GFR will not calculate if the sex is unknown or if thepatient's age is <18 years. CREATININE (test code = CREAT) 0.63 mg/dL 0.55-1.02 N TOTAL PROTEIN (test code = PROT) 6.8 g/dL 6.4-8.2 N ALBUMIN (test code = ALB) 3.7 g/dL 3.4-5.0 N GLOBULIN (test code = GLOB) 3.1 g/dL 2.2-4.2 N ALBUMIN/GLOBULIN RATIO (test code = A/G) 1.2 0.7-2.0 N CALCIUM (test code = CA) 9.3 mg/dL 8.5-10.1 N BILIRUBIN TOTAL (test code = BILT) 0.40 mg/dL 0.2-1.00 N SGOT/AST (test code = AST) 35.0 U/L 15-37 N SGPT/ALT (test code = ALT) 46.0 U/L 14-59 N ALKALINE PHOSPHATASE TOTAL (test code = ALKP) 108 U/L 46-116 N CBC W/AUTO [id number] 13:40:00* Test Item Value Reference Range Interpretation Comme nts WHITE BLOOD CELL (test code = WBC) 6.8 K/mm3 5.5-11.0 N RED BLOOD CELL (test code = RBC) 4.65 M/mm3 4.2-5.4 N HEMOGLOBIN (test code = HGB) 12.4 g/dL 12-16 N HEMATOCRIT (test code = HCT) 39.0 % 37-47 N MEAN CELL VOLUME (test code = MCV) 84 fL 80-98 N MEAN CELL HGB (test code = MCH) 26.7 pg 27-34 L MEAN CELL HGB CONCENTRATION (test code = MCHC) 31.8 g/dL 30.8-34.1 N RED CELL DISTRIBUTION WIDTH (test code = RDW) 13.3 % 11-16 N PLT (test code = PLT) 372 K/mm3 130-400 N MEAN PLATELET VOLUME (test c ode = MPV) 10.1 fL 8.9-12.1 N NEUTROPHIL % (test code = NT%) 64.3 % 45-70 N LYMPHOCYTE % (test code = LY%) 23.1 % 20-40 N MONOCYTE % (test code = MO%) 7.3 % 3-10 N EOSINOPHIL % (test code = EO%) 3.8 % 1-5 N BASOPHIL % (test code = BA%) 1.2 % 0.0-1.1 H NEUTROPHIL # (test code = NT#) 4.40 K/mm3 2.00-7.50 N LYMPHOCYTE # (test code = LY#) 1.58 K/mm3 1.50-4.00 N MONOCYTE # (test code = MO#) 0.50 K/mm3 0.2-0.8 N EOSINOPHIL # (test code = EO#) 0.26 K/mm3 0.04-0.4 N BASOPHIL # (test code = BA#) 0.08 K/mm3 0.02-0.10 N MANUAL DIFF REQUIRED (test c ode = MDIFF) NO MANUAL DIFF NUCLEATED RED BLOOD CELL (te st code = NRBC) 0 % 0-0 N CBC W Auto Differential panel - [id number] 13:08:00* Test Item Value Reference Range Interpretation Comme nts white blood cell (test code = white blood cell) 6.8 K/mm3 5.5-11.0 red blood cell (test code = red blood cell) 4.65 M/mm3 4.2-5.4 hemoglobin (test code = hemoglobin) 12.4 g/dL 12-16 hematocrit (test code = hematocrit) 39.0 % 37-47 mean cell volume (test code = mean cell volume) 84 fL 80-98 mean cell HGB (test code = m lencho cell HGB) 26.7 pg 27-34 L mean cell HGB concentration (test code = mean cell HGB concentration) 31.8 g/dL 30.8-34.1 red cell distribution width (test code = red cell distribution width) 13.3 % 11-16 plt (test code = plt) 372 K/mm3 130-400 mean platelet volume (test c ode = mean platelet volume) 10.1 fL 8.9-12.1 neutrophil % (test code = neutrophil %) 64.3 % 45-70 lymphocyte % (test code = lymphocyte %) 23.1 % 20-40 monocyte % (test code = mono cyte %) 7.3 % 3-10 eosinophil % (test code = eosinophil %) 3.8 % 1-5 basophil % (test code = baso blair %) 1.2 % 0.0-1.1 H neutrophil # (test code = neutrophil #) 4.40 K/mm3 2.00-7.50 lymphocyte # (test code = lymphocyte #) 1.58 K/mm3 1.50-4.00 monocyte # (test code = mono cyte #) 0.50 K/mm3 0.2-0.8 eosinophil # (test code = eosinophil #) 0.26 K/mm3 0.04-0.4 basophil # (test code = baso blair #) 0.08 K/mm3 0.02-0.10 manual diff required (test c ode = manual diff required) NO manual diff nucleated red blood cell (te st code = nucleated red blood cell) 0 % 0-0 performing lab: (test code = performing lab:) [facility] 2000 [facility] - Serum or [id number] 13:08:00* Test Item Value Reference Range Interpretation Comme nts sodium (test code = sodium) 142 mmol/L 136-145 potassium (test code = potassium) 3.8 mmol/L 3.5-5.1 chloride (test code = chloride) 104.0 mmol/L 98-107 carbon dioxide (test code = carbon dioxide) 30.3 mmol/L 21-32 glucose (test code = glucose) 106 mg/dL 74-106 blood urea nitrogen (test co de = blood urea nitrogen) 14 mg/dL 7-18 glomerular filtration rate ( test code = glomerular filtration rate) 96.6 >60 creatinine (test code = creatinine) 0.63 mg/dL 0.55-1.02 total protein (test code = t otal protein) 6.8 g/dL 6.4-8.2 albumin (test code = albumin) 3.7 g/dL 3.4-5.0 globulin (test code = globulin) 3.1 g/dL 2.2-4.2 albumin/globulin ratio (test code = albumin/globulin ratio) 1.2 0.7-2.0 calcium (test code = calcium) 9.3 mg/dL 8.5-10.1 bilirubin total (test code = bilirubin total) 0.40 mg/dL 0.2-1.00 SGOT/AST (test code = SGOT/AST) 35.0 U/L 15-37 SGPT/ALT (test code = SGPT/ALT) 46.0 U/L 14-59 alkaline phosphatase total ( test code = alkaline phosphatase total) 108 U/L 46-116 performing lab: (test code = performing lab:) [facility] St[facility] aureus [Presence] in Specimen by Organism specific [id number] 13:08:00* Test Item Value Reference Range Interpretation Comme nts MRSA surveillance screen (te st code = MRSA surveillance screen) See Below performing lab: (test code = performing lab:) [facility] [id number] 13:08:00 * Test Item Value Reference Range Interpretation Comme nts mssa PCR surveillance screen (test code = mssa PCR surveillance screen) See Below performing lab: (test code = performing lab:) [facility] 09:47:00* Test Item Value Reference Range Interpretation Comme nts GLUBED (test code = GLUBED) 112 mg/dL 60-99 H The normal fasti ng blood glucose range for a non-diabeticadult is 60-99 mg/dL. Two hours after meals, normal blood glucose levels should beless than 140 mg/dL.Please note new normal range. [id number] 09:36:00* Test Item Value Reference Range Interpretation Comme nts glubed (test code = glubed) 112 mg/dL 60-99 H performing lab: (test code = performing lab:) [facility] METABOLIC [id number] 13:30:00* Test Item Value Reference Range Interpretation Comme nts SODIUM (test code = NA) 141 mmol/L 136-145 N POTASSIUM (test code = K) 4.2 mmol/L 3.5-5.1 N CHLORIDE (test code = CL) 105.0 mmol/L 98-107 N CARBON DIOXIDE (test code = CO2) 20.5 mmol/L 21-32 L GLUCOSE (test code = GLU) 147 mg/dL 74-106 H BLOOD UREA NITROGEN (test code = BUN) 18 mg/dL 7-18 N GLOMERULAR FILTRATION RATE (test code = GFR) 64.4 >60 The Glomerular Filtration Rate is a calculated parameterbased on serum Creatinine, patient age and sex. GFR valuesless than 60 mL/min/1.73 square meters are indicative ofChronic Kidney Disease. Values less than 15 mL/min/1.73square meters indicate Kidney failure. The calculation forGFR is based on the CKD-EPI (2020) calculation. This formulais race indifferent and is the recommended formula for GFRby the National Kidney Foundation for Adults.The GFR will not calculate if the sex is unknown or if thepatient's age is <18 years. CREATININE (test code = CREAT) 0.96 mg/dL 0.55-1.02 N CALCIUM (test code = CA) 10.0 mg/dL 8.5-10.1 N EXTERNAL [id number] 00:00:00External [facility]UnN[facility] CenterPOCT URINALYSIS W SPECIFIC [id number] 21:11:00* Test Item Value Reference Range Interpretation Comme nts POCT U SP GRAV (test code = 3255) 1.010 mg/dl 1.005-1.025 POCT PH U (test code = 3254) 5 mg/dl 5-8 POCT U LEUK EST (test code = 3263) neg Negative - Negative POCT U NIT (test code = 3262) neg Negative - Negative POCT U PROT (test code = 3259) neg Negative - Negative POCT U GLU (test code = 3256) 100 Negative - Negative POCT U KETONE (test code = 3258) neg Negative - Negative POCT U UROBILI (test code = 3260) normal 0.2-1 POCT U BILI (test code = 3261) neg Negative - Negative POCT U BLD (test code = 3257) neg Negative - Negative POCT U COLOR (test code = 3266) yellow POCT U APPEAR (test code = 3267) clear ELIANA (test code = ELIANA) accurate developme nt and interpretation of all internal controls Lab Interpretation (test code = 93254-8) Normal [facility] URINALYSIS W/O SPECIFIC [id number] 15:47:00* Test Item Value Reference Range Interpretation Comme nts POCT PH U (test code = 3254) 6 mg/dl 5-8 POCT U LEUK EST (test code = 3263) negative Negative - Negative POCT U NIT (test code = 3262) negative Negative - Negati ve POCT U PROT (test code = 3259) negative Negative - Negat dao POCT U GLU (test code = 3256) negative Negative - Negati ve POCT U KETONE (test code = 3258) negative Negative - Neg ative POCT U BLD (test code = 3257) negative Negative - Negati ve [facility] URINALYSIS W/O SPECIFIC [id number] 15:47:00* Test Item Value Reference Range Interpretation Comme nts POCT PH U (test code = 3254) 6 mg/dl 5-8 POCT U LEUK EST (test code = 3263) negative Negative - Negative POCT U NIT (test code = 3262) negative Negative - Negati ve POCT U PROT (test code = 3259) negative Negative - Negat dao POCT U GLU (test code = 3256) negative Negative - Negati ve POCT U KETONE (test code = 3258) negative Negative - Neg ative POCT U BLD (test code = 3257) negative Negative - Negati ve [facility] Notes Date/Time Note Provider Source 2024-06-19 09:12:00 [facility] Clinical Note REPORT#:[id number] REPORT STATUS: Signed REPORT INITIALIZATION DATE:06/19/24 TIME: 911 PATIENT: SARAH ESTEVEZ UNIT #: [id number] ROOM/BED: [address] : 55 AGE: 68 SEX: F ATTEND: Phil Robles MD ADM AUTHOR: Sarthak Soriano MD REPT SERVICE DT/TIME: 06/19/24911 * ALL edits or amendments must be made on the electronic/computer document * Clinical Note Note: [facility] Sarthak Chowdary M.D. (cell text [phone]) Assessment/Plan 1.) Anemia of acute blood loss- .Hgb 9.6, asymptomatic. 2.) S/p Right Total Knee Arthroplasty .acute multi-modal pain control and followup. Anticoagulation as per Dr. Robles 3.) Hypertension- .follow BP and hold Rxs if SBP<120. 4.) OsteoArthritis Hyperlipidemia Diabetes2 SAAD- .continue on Rx. * OK for DISCHARGE per Internal Medicine. Prior Events/Overnight: Uneventful. Chief Complaint: No significant complaints. Objective Vital Signs: Date Time Temp Pulse Resp B/P B/P Pulse O2 O2 Flow FiO2 Mean Ox Delivery Rate 06/19 0727 97.2 82 15 102/63 76.0 96 Room air 06/19 0401 96.8 62 14 110/67 80.9 97 Room air 06/18 2223 98.1 90 14 96/61 72.6 99 Room air 06/18 1920 99.0 109 14 111/67 82.1 97 Room air 06/18 1654 96.3 86 18 128/82 97.3 98 Room air 06/18 1500 98 Nasal 1 cannula 06/18 1414 95.0 82 18 118/72 87.4 98 Room air 06/18 1303 Nasal 2 cannula 06/18 1249 97.0 100 15 141/75 97.0 96 06/18 1230 97.3 75 15 126/70 99 Nasal 4 cannula 06/18 1215 83 16 122/63 100 Nasal 4 cannula 06/18 1211 Nasal 4 cannula 06/18 1206 Simple 8 mask 06/18 1200 83 24 126/73 97 Nasal 4 cannula 06/18 1145 69 14 139/66 96 Nasal 4 cannula 06/18 1130 69 17 131/62 99 Nasal 4 cannula 06/18 1115 71 15 142/68 98 Nasal 4 cannula 06/18 1100 74 15 117/56 98 Simple 8 mask 06/18 1043 97.2 70 18 116/56 100 Simple 4 mask Gen: Alert, oriented, in mild discomfort CV: Regular Rate Rhythm / Edema- no significant Resp: Clear To Ascultation / Normal Respiratory Effort ABD: NonTender / NonDistended MS/Skin: No sign of compartment syndrome / +ankle DF/PF Other: Labs/X-ray: Laboratory Tests: 06/19 06/19 06/18 06/18 0501 0400 2010 1657 Chemistry Sodium (136 - 145 mmol/L) 141 Potassium (3.5 - 5.1 mmol/L) 4.9 Chloride (98 - 107 mmol/L) 105.0 Carbon Dioxide (21 - 32 mmol/L) 28.2 BUN (7 - 18 mg/dL) 13 Creatinine (0.55 - 1.02 mg/dL) 0.77 Glomerular Filtr Rate (>60) 84.0 Glucose (74 - 106 mg/dL) 173 H POC Glucose (60 - 99 mg/dL) 175 H 264 H 298 H Calcium (8.5 - 10.1 mg/dL) 9.2 Hematology Hgb (12 - 16 g/dL) 9.6 L Hct (37 - 47 %) 30.1 L Recent Impressions: RADIOLOGY - XR KNEE 1 OR 2 V RT 06/18 1103 Report Impression - Status: SIGNED Entered: 06/18/2024 1516 IMPRESSION: Postoperative exam as above. Impression By: Mary Cramer M.D. at 1029 RPT #:[id number] END OF REPORT HCATO 2024-06-19 08:00:00 [facility] Discharge Summary REPORT#:[id number] REPORT STATUS: Signed REPORT INITIALIZATION DATE:06/19/24 TIME: 0800 PATIENT: SARAH ESTEVEZ UNIT #: [id number] ROOM/BED: [facility] : 55 AGE: 68 SEX: F ATTEND: Phil Robles MD ADM AUTHOR: Lico Arroyo APRN REPT SERVICE DT/TIME: 06/19/24 0800 * ALL edits or amendments must be made on the electronic/computer document * General Information Discharge date: 06/19/24 Discharge diagnosis: Right knee osteoarthritis Hospital course: Discharge Diagnosis: Right Knee Degenerative Disease Procedure: Right Knee Arthroplasty Hospital Course and Findings The patient underwent the procedure without incident. Findings were significant for degenerative disease of the knee. The patient was hemodynamically and medically monitored during the postoperative period. Anticoagulation was instituted for postoperative DVT prophylaxis. The patient was progressively able to tolerate PO pain medications and the appropriate diet. Physical therapy was instituted, with a progressive ability to ambulate and perform exercises. The patient was eventually deemed stable and safe for discharge. Despite factors which projected a longer hospital stay, the patient fulfilled criteria for earlier than expected discharge, including control of pain, early mobilization with therapy, and a stable hemodynamic status. At discharge, the patient was comfortable, with a controlled pain level. There were no chest or abdominal symptoms present. Discharge physical examination demonstrated stable vital signs and no acute distress. The patient had an intact wound with no significant drainage, and no calf tenderness and a negative Bunny's sign bilaterally. There were no neurologic or vascular deficits or changes from the preoperative state. Disposition: Discharged to home Discharge Condition: Stable Instructions: Instruction sheet given to patient Activity: Ambulate with assistance, with weight-bearing as instructed in the hospital. Diet: As per preoperatively Prescriptions 1. Pain Medications: As per discharge prescription, with progressive weaning as pain decreases 2. Anticoagulation: As per discharge prescription, or PreOp anticoagulant, as discussed with patient 3. Physical Therapy: Will undergo PT for gait training, mobilization, svgnz-[id number], and strengthening. Patient was informed that they need to arrange for therapy as quickly as possible. The importance of early advancement of gfjxt-ds-scyzac with home exercises, and physical therapy was stressed to the patient. Follow-up Appointment: Patient instructed to arrange appointment for an office visit in 2 weeks Med Rec Med Rec Discharge meds: Continue taking these medications: ATORVASTATIN (LIPITOR) 20 MG TAB 20 MILLIGRAM ORAL DAILY. metFORMIN (GLUCOPHAGE) 1,000 MG TAB 1,000 MILLIGRAM ORAL TWICE DAILY. Instructions: TAKE WITH MEALS DULAGLUTIDE (TRULICITY) 0.75 MG/0.5 ML PEN.INJCTR 0.75 MILLIGRAM SUBCUTANEOUS EVERY 7 DAYS. CYANOCOBALAMIN (VITAMIN B-12) 1,000 MCG/ML VIAL 1,000 MICROGRAM INTRAMUSCULAR Q30D CHOLECALCIFEROL (VITAMIN D3) (VITAMIN D3) 1,250 MCG (50,000 UNIT) CAP 50,000 UNIT ORAL Q30D CALCIUM CARBONATE/VIT D3 (CALCIUM CARB/VIT D3 500 MG/200 UNITS) 500 MG CALCIUM-5 MCG (200 UNIT) TAB 1 TABLET ORAL DAILY. MULTIVITAMIN (MULTIPLE VITAMIN) 1 TAB TAB 1 TABLET ORAL DAILY. FERROUS SULFATE (FEOSOL) 325 MG (65 MG IRON) TAB 325 MILLIGRAM ORAL DAILY. ACETAMINOPHEN (TYLENOL) 500 MG TAB 500 MILLIGRAM ORAL DIRECTED. Instructions: Follow label instructions for pain or fever. Discharge Instructions PCP )( Discharge to: Home/Self Care Discharge Instructions Additional Discharge Routines: Attending Follow-Up, Wound/Dressing Care )( Diet: Resume Home Diet/Feeds, Regular )( Activity: Resume Normal Activity, As Tolerated, Do not Submerge Incision )( Wound/dressing care: Do not submerge incision, Leave dressing in place, OK to shower tomorrow Follow-up Appointments Attending Physician: Attending Physician: Phil Robles MD Attending physician follow up timeframe: In 2-3 weeks Special instructions: Aspirin twice a day to prevent blood clot Leave mesh dressing in place for two weeks until follow up Ok to shower with dressing in place, cover with plastic wrap for first 72 hours at 0802 at 0811 RPT #:[id number] END OF REPORT HCATO 2024-06-18 17:07:00 [facility] Clinical Note REPORT#:[id number] REPORT STATUS: Signed REPORT INITIALIZATION DATE:06/18/24 TIME: 1707 PATIENT: SARAH ESTEVEZ UNIT #: [id number] ROOM/BED: [facility]-A : 55 AGE: 68 SEX: F ATTEND: Phil Robles MD ADM AUTHOR: Sarthak Soriano MD REPT SERVICE DT/TIME: 06/18/24 5222 * ALL edits or amendments must be made on the electronic/computer document * Clinical Note Note: [facility] Sarthak Chowdary MD (cell text [phone]) Internal Medicine Consult at request of : Dr. Phil Robles Chief Complaint: bilateral knee pain HPI: 68 yo F is now s/p Right Total Knee Arthroplasty and Left Knee Steroid Injection by Dr. Robles. Ms. Estevez relates years of progressive bilateral knee pain (recently severe, 03/28), worse with activity, and with restricted motion at times in quality. She has failed conservative management. Comorbidities: see below. PmHx: . Osteoarthritis, hyperlipidemia, type 2 diabetes mellitus, sleep apnea ALLERGY: Allergies: No Known Drug Allergies (Coded, 06/18/24) lactose (Coded, Mild, SEVERE CRAMPING, 06/18/24) Home Medications: Home Medications: ATORVASTATIN (LIPITOR) 20 MG PO DAILY metFORMIN (GLUCOPHAGE) 1,000 MG PO BID DULAGLUTIDE (TRULICITY) 0.75 MG SUBQ Q7D CYANOCOBALAMIN (VITAMIN B-12) 1,000 MCG IM Q30D CHOLECALCIFEROL (VITAMIN D3) (VITAMIN D3) 50,000 UNIT PO Q30D CALCIUM CARBONATE/VIT D3 (CALCIUM CARB/VIT D3 500 MG/200 UNITS) 1 TAB PO DAILY MULTIVITAMIN (MULTIPLE VITAMIN) 1 TAB PO DAILY FERROUS SULFATE (FEOSOL) 325 MG PO DAILY ACETAMINOPHEN (TYLENOL) 500 MG PO ASDIR SgHx: . Gastric bypass, hysterectomy, bunionectomy, gastric bypass SHx: Tob: former FHx: .No significant hx of DVT/PE. Alcohol: none Drugs: none Lives: alone . . Vitals: Vital Signs: Date Time Temp Pulse Resp B/P B/P Pulse O2 O2 Flow FiO2 Mean Ox Delivery Rate 06/18 1654 96.3 86 18 128/82 97.3 98 Room air 06/18 1414 95.0 82 18 118/72 87.4 98 Room air 06/18 1303 Nasal 2 cannula 06/18 1249 97.0 100 15 141/75 97.0 96 06/18 1230 97.3 75 15 126/70 99 Nasal 4 cannula 06/18 1215 83 16 122/63 100 Nasal 4 cannula 06/18 1211 Nasal 4 cannula 06/18 1206 Simple 8 mask 06/18 1200 83 24 126/73 97 Nasal 4 cannula 06/18 1145 69 14 139/66 96 Nasal 4 cannula 06/18 1130 69 17 131/62 99 Nasal 4 cannula 06/18 1115 71 15 142/68 98 Nasal 4 cannula 06/18 1100 74 15 117/56 98 Simple 8 mask 06/18 1043 97.2 70 18 116/56 100 Simple 4 mask 06/18 0642 98.0 69 16 135/65 99 Room air Gen: Alert, in mild discomfort. EYE: Nl lids conjunctiva. ENT: Nl ears Nose, nl lips,. Neck: Supple, nl thyroid, No masses. CV: Regular Rate Rhythm, no heave or significant murmur. Edema- none RESP: Clear to Auscultation, normal Respiratory effort. ABD: Soft, NonDistended,. LYM: No significant cervical Lymphadenopathy. MS: No sign of compartment syndrome, knee is wrapped, drain NEURO: Nonfocal, grossly normal sensation of LE, +Ankle DF/PF . . Preop Labs(06/08/24): CBC:. Hgb 12.4 Plt 372 , CHEM: Na 142 , K 3.8 Cr 0.63 (eGFR96%) Ekg:Normal sinus rhythm . (medium to high risk of complications or morbidity) (major surgery) (IV sedative, meds) . Assessment Plan 1.) Anemia of Acute Blood Loss- .will recheck tomorrow. 2.) S/p Right Total Knee Arthroplasty .acute multi-modal pain control and followup. Anticoagulation as per Dr. Robles 3.) Hypertension- .follow BP and hold Rxs if SBP<120. 4.) OsteoArthritis Hyperlipidemia Diabetes2 SAAD- .continue on Rx. . Sarthak Chowdary M.D. Thanks! . . . . . G8417 BMI documented as above normal parameters and a f/u plan is documented G9903 - Patient screened for tobacco use AND identified as a tobacco non-user 1123F - ACP discussion - default code status while at [facility]. at [address] [facility] #:[id number] END OF REPORT [facility] 2024-06-18 10:29:00 [id number] [place] [id number] PATIENT NAME: SARAH ESTEVEZ ADMIT DATE: 06/18/24 ACCOUNT NO: [id number] ROOM NO: [facility] AGE: 68 REPORT TYPE: OPERATIVE REPORT SEX: F ADMITTING PHYSICIAN:Phil Robles MD ATTENDING PHYSICIAN:Phil Robles MD OPERATION DATE: 06/18/2024 PREOPERATIVE DIAGNOSIS: Bilateral knee osteoarthritis. POSTOPERATIVE DIAGNOSIS: Bilateral knee osteoarthritis. OPERATIVE PROCEDURES PERFORMED: 1. Computer-assisted imageless right total knee arthroplasty, 77015. . 3. Intraarticular corticosteroid injection, left knee . IMPLANTS UTILIZED: DePuy Attune fixed bearing total knee system, size 4 narrow right posterior stabilized femur, size 4 fixed bearing tibial tray, 4 x 5 fixed bearing posterior stabilized tibial insert, 35 mm oval patella, all components cemented. ANESTHESIA: General. TOURNIQUET TIME: 21 minutes. ESTIMATED BLOOD LOSS: Less than 25 mL. SURGEON: Phil Robles MD STEEL LOADER: EDINSON Artis OPERATIVE FINDINGS: As above. SURGICAL SPECIMENS SENT: None. CLINICAL INDICATIONS: Ms. Estevez is a 68-year-old female from [place], [place], who has been having severe and disabling pain in both knees for the past several years. The pain has become quite disabling the right knee over the past year. She is experiencing pain on a daily basis. Her pain has been refractory to extensive nonoperative intervention. Due to her severe disability, she is admitted for initial right total knee arthroplasty with intra-articular injection involving the left knee. OPERATIVE NARRATIVE: 1. COMPUTER-ASSISTED IMAGELESS RIGHT TOTAL KNEE ARTHROPLASTY, [id number]. 2. . 3. INTRA-ARTICULAR CORTICOSTEROID INJECTION, LEFT KNEE, . PATIENT NAME: SARAH ESTEVEZ DESCRIPTION OF PROCEDURE: Ms. Estevez was brought to the operative suite, at which time she was placed in supine position on the OR table. Routine monitors were established. General anesthesia was delivered. After satisfactory induction of general anesthesia, the left knee was aseptically prepped and this was injected with 80 mg of Depo-Medrol. A tourniquet was then applied to the patient's right lower extremity per Mr. Artis and the right leg was circumferentially prepped and draped in usual sterile fashion per Mr. Artis. The leg was then elevated, exsanguinated, tourniquet insufflated to 300 mmHg. The knee was flexed to 100 degrees. Anterior midline incision was performed. Medial parapatellar arthrotomy was performed. Patella was everted laterally. Severe grade IV changes were noted over patellofemoral joint as well as medial and lateral compartments. Ligament balancing was achieved. Medial and lateral menisci were excised. Anterior and posterior cruciate ligaments were then resected. A centramedullary pin was then placed in the anatomic center of the distal femur and the OrthAlign guide was placed and the knee was registered. The guide was pinned in 0 degrees of varus valgus angulation with 3 degrees of flexion. The distal 10 mm of the femur was then resected. The guide was removed, the distal femur appropriately sized and a size 4 cutting block was used to create the anterior followed by posterior followed by chamfer cuts. The appropriate osteotomy guide was placed across distal femur and the femoral notch was resected. The proximal tibia was then translated anteriorly. Utilizing extramedullary instrumentation, the proximal tibia resected perpendicular to its mechanical axis, resecting 10 mm from the unaffected lateral tibial plateau. The proximal tibia was appropriately sized and a size 4 baseplate was noted to provide optimal coverage. Proximal tibia was appropriately prepped. The patella was resected utilizing a limited fashion to ensure adequate bone stock. Trial components were placed into the joint. Optimal stability was noted utilizing a 5 mm insert. A 0 degrees of gravity extension with 140 degrees of gravity flexion were present. Patellofemoral tracking was within normal limits. There was no varus or valgus instability noted. The knee was stable in both flexion as well as extension. The trial components were removed. Bony surfaces prepared for cement implantation using pulsatile lavage irrigation. The tibial tray was cemented into place followed by cement implantation of femoral component. Polyethylene insert was then placed on the tibial tray and the knee was placed in full extension. Patellar component was cemented. Tourniquet deflated. Meticulous hemostasis achieved with Bovie electrocautery. Copious antibiotic lavage was performed. Medium Hemovac drain was then placed deep to the extensor mechanism and the knee was placed into 70 degrees of flexion. The arthrotomy was closed in watertight fashion, 2.0 Quill suture. Prior to final closure of the arthrotomy, the knee was placed into full extension and 400 mg of Zynrelef was injected medially, laterally as well as superiorly. Final arthrotomy closure was then performed. Skin closure was performed with interrupted 0 Vicryl, followed by 2-0 Vicryl, followed by Ethicon Prineo mesh as per Mr. Artis. During the procedure, Mr. Artis was invaluable in positioning the patient along with preparation and draping of extremity. He was also responsible for providing surgical exposure throughout the procedure, which greatly expedited the performance of the procedure in addition to protection of neurovascular structures. Finally, he was responsible for closure of the postoperative incision, postoperative anesthetic injection and application of postoperative PATIENT NAME: SARAH ESTEVEZ dressing. Dictated By: Phil Robles MD Date Dictated: 06/18/2024 10:29:48 Date Transcribed: 06/18/2024 10:47:40 B/ Receipt ID: [id number] Authenticated by Phil Robles MD On 06/19/2024 06:10:15 AM at 0610 PATIENT NAME: SARAH ESTEVEZ [facility] 2024-06-18 06:55:00 [facility] Brief Op Note REPORT#:[id number] REPORT STATUS: Signed REPORT INITIALIZATION DATE:06/18/24 TIME: 654 PATIENT: SARAH ESTEVEZ UNIT #: [id number] ROOM/BED: : 55 AGE: 68 SEX: F ATTEND: Phil Robles MD ADM AUTHOR: Phil Robles MD REPT SERVICE DT/TIME: 06/18/24654 * ALL edits or amendments must be made on the electronic/computer document * Op/Inv Proc Note - Brief Pre-procedure diagnosis: Right knee osteoarthritis; left knee osteoarthritis Post-procedure diagnosis: same as pre procedure dx Procedures performed: Right total knee arthroplasty with left knee steriod injection Primary Surgeon: Dr Phil Robles Master [employer](s): PETER Duvall Findings: See full dictation Complications: none Estimated blood loss in ml's: 25 cc Specimens removed/altered: none at 0656 [facility] #:[id number] END OF REPORT [facility] 2024-06-16 17:36:00 [id number] [facility] [address] [address] PATIENT NAME: SARAH ESTEVEZ ADMIT DATE: ACCOUNT NO: [id number] ROOM NO: AGE: 68 REPORT TYPE: HISTORY AND PHYSICAL SEX: F ADMITTING PHYSICIAN: ATTENDING PHYSICIAN:Phil Robles MD ADMISSION DATE: 06/18/2024 00:00:00 ADMITTING DIAGNOSIS: Left knee osteoarthritis, M17.12. HISTORY OF PRESENT ILLNESS: Ms. Estevez is a 68-year-old female who has been having chronic pain in her left foot for the past several months. Pain has been quite disabling. The pain has been refractory to extensive nonoperative intervention. Her clinical as well as radiographic evaluation revealed significant tricompartment arthritis. She is admitted for computer-assisted imageless left total knee arthroplasty. PAST MEDICAL HISTORY: Anemia, arthritis, diabetes. PAST SURGICAL HISTORY: Include a section. FAMILY HISTORY: Malignancy, diabetes, and hypertension. SOCIAL HISTORY: She is a former smoker. She does not drink. ALLERGIES: NO KNOWN DRUG ALLERGIES ARE NOTED. MEDICATIONS: Atorvastatin, ferrous sulfate, metformin, trazodone, and Trulicity. REVIEW OF SYSTEMS: Negative. PHYSICAL EXAMINATION: VITAL SIGNS: A 5 feet 2 inches tall, 74.8 kg. ORTHOPEDIC EVALUATION: Leg lengths are equal. Full painless motion of both hips. Examination of the left knee reveals an antalgic gait. She has severe pain with passive range of motion. She has 0 to 120 degrees of motion. There is no instability. Her distal neurovascular status is intact. RADIOGRAPHIC EVALUATION: Revealed severe osteoarthropathy. ASSESSMENT: Left knee pain secondary to severe osteoarthropathy. SURGICAL PLAN: Left total knee arthroplasty, computer-assisted, imageless. I have gone over at length with the patient the associated risks involved with this procedure. She understands that these include, but are not limited to bleeding, infection, neurovascular damage, persistent pain, loss of motion, need for further operative intervention, leg length inequality, loosening of the PATIENT NAME: SARAH ESTEVEZ prosthesis requiring possible revision, deep vein thrombi leading to pulmonary emboli along with complications secondary to anesthesia. She understands that she will receive a fixed bearing posterior cruciate sacrificing total knee arthroplasty. In addition, she understands that there are no guarantees or warranties that she will be pain free as a result of the procedure. She accepts these risks and gives her informed consent to proceed. Dictated By: Phil Robles MD Date Dictated: 06/16/2024 17:36:25 Date Transcribed: 06/16/2024 17:47:12 Dana/JAREN Receipt ID: [id number] Authenticated by Phil Robles MD On 06/17/2024 06:52:53 AM at 0652 PATIENT NAME: SARAH ESTEVEZ [facility] 2024-04-23 11:11:00 [id number] [place] [address] PATIENT NAME: SARAH ESTEVEZ ADMIT DATE: 04/23/24 ACCOUNT NO: [id number] ROOM NO: AGE: 68 REPORT TYPE: OPERATIVE REPORT SEX: F ADMITTING PHYSICIAN: ATTENDING PHYSICIAN:Nic Rogers MD OPERATION DATE: 04/23/2024 PREOPERATIVE DIAGNOSIS: Right peroneal nerve palsy. POSTOPERATIVE DIAGNOSIS: Right peroneal nerve palsy. PROCEDURES: 1. Neurolysis, right peroneal nerve and its branches. 2. Tenotomy peroneal muscles. SURGEON: Nic Rogers M.D. MASTER DATA ANALYST: ANESTHESIA: General. ESTIMATED BLOOD LOSS: Minimal. COMPLICATIONS: None. DISPOSITION: Awake to PACU. INDICATIONS FOR SURGERY: This is a 68-year-old female who has developed a progressively worsening paralysis of her right peroneal nerve. This was confirmed on clinical examination as well as on EMG, which revealed a neuropathy at the level of the fibular neck. Risks and benefits were discussed with the patient as well as alternative treatments. Adequate consents were obtained. SUMMARY OF THE PROCEDURE: The patient was identified in the preoperative area and taken to the operating room. She was placed in the supine position. General anesthesia was induced by the anesthesiology team. IV antibiotics were administered. The entire lower extremity was prepped and draped in the standard sterile surgical fashion. A tourniquet placed over the arm was inflated to 250 mmHg after exsanguination using an Esmarch bandage. A longitudinal incision was placed on the posterolateral aspect of the knee from posterior proximally to anterior distally. Skin and subcutaneous tissues were sharply divided. Full thickness flaps were elevated. The peroneal nerve was first identified on the posterior border of the hamstring. It was then progressively dissected from proximal to distal. There was first a compression under the fascia, which was divided in a transverse manner. There was then visible compression under the peroneal muscles. The superficial as well as the deep fascia were extremely thick. The superficial fascia was first divided. Tenotomy of the peroneal PATIENT NAME: SARAH ESTEVEZ muscles were then performed and then the deep fascia was elevated. The peroneal nerve was then exposed along with its two terminal branches. At this point, there was no more visible compression with normal coloration and vascularization of the nerve. The wound was copiously irrigated and closed in a layered fashion using 3-0 Vicryl and 4-0 Monocryl. A local block was performed using 0.25% Marcaine. The wound was closed using 3-0 Vicryl and 4-0 Monocryl. Sterile dressing was applied. Tourniquet was deflated. The patient was awakened and taken to the recovery room in a good and stable condition. She tolerated well the procedure with no complications. Dictated By: Nic Rogers MD Date Dictated: 04/23/2024 11:11:35 Date Transcribed: 04/23/2024 11:23:42 ANNABELLE/JOAN/JASSI/TK Receipt ID: [id number] Authenticated and Edited by Nic Rogers MD On 04/30/24 1:57:26 PM at 0159 PATIENT NAME: SARAH ESTEVEZ [facility] 2024-03-25 11:58:00 [id number] [facility] [address] [address] PATIENT NAME: SARAH ESTEVEZ ADMIT DATE: ACCOUNT NO: [id number] ROOM NO: AGE: 68 REPORT TYPE: ELECTROCARDIOGRAM SEX: F ADMITTING PHYSICIAN: ATTENDING PHYSICIAN:Nic Rogers MD Order: [id number] Test Reason : PREOP CLEARANCE H/O HLD Test Date/Time Stamp: SatMar 25 2024 11:58:10 Blood Pressure : / mmHG Vent. Rate : 085 BPM Atrial Rate : 085 BPM P-R Int : 144 ms QRS Dur : 076 ms QT Int : 370 ms P-R-T Axes : 049 077 055 degrees QTc Int : 440 ms Normal sinus rhythm Normal ECG No previous ECGs available Confirmed by GEMMA MEDELLIN MD ([id number]) on 03/30/2024 4:04:26 PM Referred By: Nic Rogers Confirmed by:GEMMA MEDELLIN MD PATIENT NAME: SARAH ESTEVEZ [facility] 2023-10-18 14:55:50 Received mammogram from [facility] on 2020, 2021, and 12/13/2022 Beverly Pittman MD 10/18/2023 2:56 PM [facility] 2023-10-18 13:12:24 Medical records received and placed on provider's desk for review and signature. Y [facility]
[2024-12-14] MEDS ORDERED: TDAP (DIPHTH,PERTUSS(ACELL),TET VAC) 0.5 ML VIAL IMVAC ONE (11:36)
[2024-12-14] MEDS ORDERED: LORAZEPAM 0.5 MG TABLET ONE (11:36)
[2024-12-14] MEDS ORDERED: LIDOCAINE 1% 20 ML MDV ONE (11:38)
--- NOTE | 2024-12-14 12:20 | RAD REPORT ---
EXAMINATION: XR RIGHT KNEE CLINICAL INDICATION: Female, 69 years old. PAIN TECHNIQUE: Multiple views of the right knee were obtained. COMPARISON: No prior exam. FINDINGS: Soft tissue swelling is seen in the region of the patellar tendon with tiny air locules pre sent. No radiopaque foreign body seen. 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 No hardware loosening or infection. No acute fracture evident.
--- NOTE | 2024-12-14 12:30 | ER ---
Nurse's Notes [facility] Name: Lizeth Estevez Age: 69 yrs Sex: Female : 1955 Arrival Date: 12/14/2024 Time: 11:12 Bed 19 Private MD: Diagnosis: Laceration without foreign body of knee;Abrasion of right elbow;Fall on same level, unspecified Presentation: 12/14 11:24 Chief complaint: EMS states: MECHANICAL FALL WHILE WALKING, R KNEE SCAR OPENED. bp Coronavirus screen: At this time, the client does not indicate any symptoms associated with coronavirus-19. Ebola Screen: No symptoms or risks identified at this time. Initial Sepsis Screen: Does the patient meet any 2 criteria? No. Patient's initial sepsis screen is negative. Does the patient have a suspected source of infection? No. Patient's initial sepsis screen is negative. Risk Assessment: Do you want to hurt yourself or someone else? Patient reports no desire to harm self or others. Onset of symptoms was December 14, 2024 at 11:00. Care prior to arrival: Glucose check: 240. 11:24 Method Of Arrival: EMS: [facility] bp 11:24 Acuity: REMI 3 bp Triage Assessment: 11:26 General: Appears in no apparent distress. comfortable, Behavior is calm, cooperative, bp appropriate for age. Pain: Denies pain. EENT: No deficits noted. Neuro: No deficits noted. Cardiovascular: No deficits noted. Respiratory: No deficits noted. GI: No signs and/or symptoms were reported involving the gastrointestinal system. : No signs and/or symptoms were reported regarding the genitourinary system. Derm: No deficits noted. Musculoskeletal: No deficits noted. Injury Description: Laceration sustained to right knee. Historical: - Allergies: 11:26 No Known Allergies; bp - Home Meds: 11:26 Vitamin D2 50 Oral cap 1 cap once wkly [Active]; bp - PMHx: 11:26 Diabetes - NIDDM; High Cholesterol; bp - Immunization history:: Adult Immunizations up to date. - Infectious Disease History:: Denies. - Social history:: Smoking status: Patient denies any tobacco usage or history of. Screenin:41 [facility] ED Fall Risk Assessment (Adult) History of falling in the last 3 months, bp including since admission No falls in past 3 months (0 pts) Confusion or Disorientation No (0 pts) Intoxicated or Sedated No (0 pts) Impaired Gait No (0 pts) Mobility Assist Device Used No (0 pt) Altered Elimination No (0 pt) Score/Fall Risk Level 0 - 2 = Low Risk Oriented to surroundings. Abuse screen: Denies threats or abuse. Denies injuries from another. Nutritional screening: No deficits noted. Tuberculosis screening: No symptoms or risk factors identified. Assessment: 11:42 General: Appears in no apparent distress. comfortable. bp Vital Signs: 11:24 BP 142 / 56; Pulse 98; Resp 16; Temp 98; Pulse Ox 100% ; bp 12:43 BP 145 / 63; Pulse 87; Resp 16; Pulse Ox 100% ; bp ED Course: 11:16 Patient arrived in ED. kb 11:16 [facility]C [facility]. kb 11:16 Jackson Mazariegos MD is Attending Physician. kb 11:24 Sidney Eaton, GUTIERREZ is Primary Nurse. bp 11:26 Triage completed. bp 11:26 Arm band placed on. bp 11:41 Patient has correct armband on for positive identification. bp 12:16 Knee Right 3 View In Process Unspecified. EDMS 12:27 Assist provider with laceration repair on right knee that was between 7.6 to 12.5 cm bp using sutures. Set up tray. Performed by Meg GAMBLE Dressed with Neosporin, Patient tolerated well. Patient did not have IV access during this emergency room visit. Administered Medications: 11:40 Drug: Boostrix Tdap IM 0.5 ml IM once; as a single dose Route: IM; Site: left deltoid; bp 12:44 Follow up: Response: No adverse reaction bp 11:40 Drug: Lidocaine Infiltration (1 %) 1 vials 20 ml Infiltration once; to bedside Volume: bp 20 ml; Route: Infiltration; 11:41 Drug: LORazepam PO 0.5 mg PO once Route: PO; bp 12:44 Follow up: Response: No adverse reaction bp Medication: 12:43 VIS not applicable for this client. bp Outcome: 12:29 Discharge ordered by MD. kb 12:43 Discharged to home via wheelchair, with family, bp 12:43 Condition: stable 12:43 Discharge instructions given to patient, Instructed on discharge instructions, follow up and referral plans. medication usage, wound care, Demonstrated understanding of instructions, follow-up care, medications, wound care, Prescriptions given X 1, 12:44 Patient left the ED. bp Signatures: Dispatcher [employer] Meg Melgar, MARII-Sidney Zamorano, RN RN bp
--- NOTE | 2024-12-14 12:30 | EDPHYS ---
Physician Documentation [facility] Name: Lizeth Estevez Age: 69 yrs Sex: Female : 1955 Arrival Date: 12/14/2024 Time: 11:12 Bed 19 Private MD: ED Physician Jackson Mazariegos HPI: 12/14 12:27 This 69 yrs old Female presents to ER via EMS with complaints of Knee Injury. kb 12:27 Pt is a 69 year old female who was carrying something and didn't see the curb in front kb of her causing her to trip and fall onto right knee and elbow. Pt had a knee replacement done in May 2024 and the laceration follows surgical scar. denies any pain. . Historical: - Allergies: 11:26 No Known Allergies; bp - Home Meds: 11:26 Vitamin D2 50 Oral cap 1 cap once wkly [Active]; bp - PMHx: 11:26 Diabetes - NIDDM; High Cholesterol; bp - Immunization history:: Adult Immunizations up to date. - Infectious Disease History:: Denies. - Social history:: Smoking status: Patient denies any tobacco usage or history of. ROS: 12:26 Constitutional: As per HPI kb Exam: 12:26 Constitutional: This is a well developed, well nourished patient who is awake, alert, kb and in no acute distress. Head/Face: Normocephalic, atraumatic. ENT: Moist Mucous membranes Cardiovascular: Regular rate Respiratory: Respirations even and unlabored. No increased work of breathing. Talking in full sentences Skin: Warm, dry with normal turgor. Normal color. Neuro: Awake and alert, GCS 15, oriented to person, place, time, and situation. 12:26 Musculoskeletal/extremity: Extremities: grossly normal except: noted in the right knee: laceration, noted in the right elbow: abrasion, ROM: intact in all extremities, Circulation is intact in all extremities. Sensation intact. Vital Signs: 11:24 BP 142 / 56; Pulse 98; Resp 16; Temp 98; Pulse Ox 100% ; bp 12:43 BP 145 / 63; Pulse 87; Resp 16; Pulse Ox 100% ; bp Laceration: 12:21 Wound Repair of 8cm ( 3.1in ) subcutaneous laceration to right knee. Linear shaped.. kb Distal neuro/vascular/tendon intact. Anesthesia: Wound infiltrated with 10 mls of 1% lidocaine. Wound prep: Extensive cleansing with hibiclenz by me, Wound irrigation with saline by me. Skin closed with 10 4-0 Prolene using 7 cruciate knots, 3 simple sutures. Patient tolerated well. MDM: 11:16 Medical Screening Exam initiated kb 12:27 Differential diagnosis: fracture, laceration, abrasion, contusion. Data reviewed: vital kb signs, nurses notes. Historians other than the Patient: EMS: [facility]. Counseling: I had a detailed discussion with the patient and/or guardian regarding the historical points, exam findings, and any diagnostic results supporting the discharge/admit diagnosis, radiology results, the need for outpatient follow up, a family practitioner, to return to the emergency department if symptoms worsen or persist or if there are any questions or concerns that arise at home. 12/14 11:24 Order name: Knee Right 3 View; Complete Time: 12:22 EDMS 12/14 11:36 Order name: Dressing - Wound; Complete Time: 11:41 kb 12/14 11:36 Order name: Gloves, Sterile; Complete Time: 11:41 kb 12/14 11:36 Order name: Prolene, Sutures; Complete Time: 11:41 kb 12/14 11:36 Order name: Setup Suture Tray; Complete Time: 11:41 kb Administered Medications: 11:40 Drug: Boostrix Tdap IM 0.5 ml IM once; as a single dose Route: IM; Site: left deltoid; bp 12:44 Follow up: Response: No adverse reaction bp 11:40 Drug: Lidocaine Infiltration (1 %) 1 vials 20 ml Infiltration once; to bedside Volume: bp 20 ml; Route: Infiltration; 11:41 Drug: LORazepam PO 0.5 mg PO once Route: PO; bp 12:44 Follow up: Response: No adverse reaction bp Disposition: 14:00 Co-signature as Attending Physician, Jackson Mazariegos MD I reviewed the patient's care rn provided by the Advanced Practice Provider and agree with the diagnosis and treatment plan. Disposition Summary: 12/14/24 12:29 Discharge Ordered Notes: Location: Home kb Condition: Stable kb Diagnosis - Laceration without foreign body of knee kb - Abrasion of right elbow kb - Fall on same level, unspecified kb Followup: kb - With: Emergency Department - When: As needed - Reason: Worsening of condition Followup: kb - With: Private Physician - When: 2 - 3 days - Reason: Recheck today's complaints, Continuance of care, Re-evaluation by your physician Discharge Instructions: - Discharge Summary Sheet kb - Laceration Care, Adult, [id number] kb Forms: - Medication Reconciliation Form kb - Antibiotic Education kb - Prescription Opioid Use kb - Patient Portal Instructions kb - Leadership Thank You Letter kb Prescriptions: - Cephalexin 500 mg Oral Capsule - take 1 capsule ORAL route every 8 hours for 10 days; 30 capsule; Refills: 0, kb Product Selection Permitted Signatures: Dispatcher [employer] EDMS Meg Sanon, FRUIT LOADER MACHINE OPERATOR-C FRUIT LOADER MACHINE OPERATOR-Ckb Jackson Mazariegos MD MD rn Sidney Eaton RN RN bp Corrections: (The following items were deleted from the chart) 11:16 11:16 Knee Right 3 View+RAD.RAD.BRZ ordered. EDSC EDSC
[2024-12-15 15:09] VITALS: TEMP 98; O2SAT 100
[2024-12-15 15:11] VITALS: BP 145/63
== END 2024-12-14 12:44 | disposition home or self-care (01) ==
LOC: ER 11:12
DX: S81.011A Laceration without foreign body, right knee, initial encounter (principal); S50.311A Abrasion of right elbow, initial encounter; W18.30XA Fall on same level, unspecified, initial encounter; Z96.651 Presence of right artificial knee joint; Z23 Encounter for immunization
CPT/HCPCS: 73562; 90715; 96372; 99284; 12034; J2003